=== PATIENT | male | born 1960 | race Caucasian/White ===

== ENCOUNTER 2021-02-15 11:11 | Inpatient (IN) | payer OTHER ==
[2021-02-15 13:57] VITALS: BMI 27.6
[2021-02-15] MEDS ORDERED: ACETAMINOPHEN 325 MG TABLET (FP) PO PRN (15:33)
[2021-02-15] MEDS ORDERED: MAGNESIUM HYDROX 2400MG/30ML ORAL SUSPENSION 30 ML CUP PO PRN (15:33)
[2021-02-15] MEDS ORDERED: NICOTINE POLACRILEX 2 MG GUM BUC PRN (15:33)
[2021-02-15] MEDS ORDERED: MENTHOL/PHENOL 1 EACH UD MM PRN (15:33)
[2021-02-15] MEDS ORDERED: METHOCARBAMOL 500 MG TABLET PO PRN (15:33)
[2021-02-15] MEDS ORDERED: BISMUTH SUBSALICYLATE 262 MG/15 ML BTL PO PRN (15:33)
[2021-02-15] MEDS ORDERED: MAGNESIUM CITRATE 300 ML BOTTLE PO PRN (15:33)
[2021-02-15] MEDS ORDERED: LORazepam 1 MG TABLET PO PRN (15:33)
[2021-02-15] MEDS ORDERED: cloNIDine HCL 0.1 MG TABLET ONE (16:18)
[2021-02-15] MEDS ORDERED: cloNIDine HCL 0.1 MG TABLET PO ONE (16:23)
[2021-02-15] MEDS: ONDANSETRON *ODT* 4 MG TABLET SL PRN (17:34)
[2021-02-15] MEDS: hydrOXYzine PAMOATE 25 MG CAPSULE (FP) PO SCH ×2 (17:35→22:25)
[2021-02-15] MEDS: LORazepam 2 MG TABLET PO SCH ×2 (17:35→22:26)
[2021-02-15] MEDS: IBUPROFEN 400 MG TABLET (FP) PO PRN (17:36)
[2021-02-15] MEDS ORDERED: ATENOLOL 25 MG TABLET (FP) PO SCH (22:00)
[2021-02-15] MEDS: MELATONIN 5 MG TABLETS PO SCH (22:25)
[2021-02-15] MEDS: ATENOLOL 25 MG TABLET (FP) PO SCH (22:25)
[2021-02-15] MEDS: THIAMINE HCL 100 MG TABLET (FP) PO SCH (22:26)
[2021-02-15] MEDS: rOPINIRole HCL 3 MG TABLET PO SCH (22:29)
[2021-02-16] MEDS: LORazepam 2 MG TABLET PO SCH ×4 (05:43→22:19)
[2021-02-16] MEDS: hydrOXYzine PAMOATE 25 MG CAPSULE (FP) PO SCH ×5 (05:44→21:47)
[2021-02-16] MEDS: ACETAMINOPHEN 325 MG TABLET (FP) PO PRN ×2 (06:26→14:28)
[2021-02-16 10:28] LABS: HEMATOCRIT 42.3 % (35.4-49); HEMOGLOBIN 14.5 GM/dL (11.7-16.9); MCH 34.7 pg (25.7-33.7); MCHC 34.2 g/dl (32.0-35.9); MEAN CELL VOLUME 101.5 fl (80-96); MEAN PLT VOLUME 11.1 fl (7.5-11.1); PLATELET COUNT 121 K/MM3 (134-434); RBC 4.17 M/mm3 (4.00-5.60); RDW 13.7 % (11.9-15.9); WHITE BLOOD COUNT 7.2 K/mm3 (4.0-10.0)
[2021-02-16 10:30] LABS: ALBUMIN 3.4 g/dl (3.4-5.0); BLOOD UREA NITROGEN 8.3 mg/dL (7-18); CREATININE 0.8 mg/dL (0.55-1.3)
[2021-02-16 10:31] LABS: BILIRUBIN,TOTAL 1.3 mg/dL (0.2-1)
[2021-02-16] MEDS: NICOTINE 21 MG/24 HOURS TOPICAL PATCH TD SCH (10:35)
[2021-02-16] MEDS: PRENATAL VITAMINS W/ FOLIC ACID TABLET (FP) PO SCH (10:35)
[2021-02-16] MEDS: ATENOLOL 25 MG TABLET (FP) PO SCH ×2 (10:36→21:44)
[2021-02-16] MEDS: IBUPROFEN 400 MG TABLET (FP) PO PRN ×2 (10:37→17:34)
[2021-02-16] MEDS: ONDANSETRON *ODT* 4 MG TABLET SL PRN (10:38)
[2021-02-16 11:20] LABS: HIV INTERPRETATION NEGATIVE (NEGATIVE)
[2021-02-16] MEDS ORDERED: POTASSIUM CHLORIDE TABS 20 MEQ TABLET.ER (FP) PO ONE (13:11)
[2021-02-16] MEDS: MAG HYDROX/AL HYDROX/SIMETH 30 ML UNIT-DOSE CUP PO PRN (14:31)
[2021-02-16] MEDS: MELATONIN 5 MG TABLETS PO SCH (21:45)
[2021-02-16] MEDS: rOPINIRole HCL 3 MG TABLET PO SCH (21:45)
[2021-02-16] MEDS: THIAMINE HCL 100 MG TABLET (FP) PO SCH (21:45)
[2021-02-17] MEDS: IBUPROFEN 400 MG TABLET (FP) PO PRN ×3 (01:44→17:58)
[2021-02-17] MEDS: hydrOXYzine PAMOATE 25 MG CAPSULE (FP) PO SCH ×5 (05:59→22:16)
[2021-02-17] MEDS: LORazepam 1 MG TABLET PO SCH ×4 (06:00→22:16)
[2021-02-17] MEDS: MAG HYDROX/AL HYDROX/SIMETH 30 ML UNIT-DOSE CUP PO PRN (06:01)
[2021-02-17] MEDS: ACETAMINOPHEN 325 MG TABLET (FP) PO PRN (06:01)
[2021-02-17] MEDS: ATENOLOL 25 MG TABLET (FP) PO SCH ×2 (09:08→22:17)
[2021-02-17] MEDS: PRENATAL VITAMINS W/ FOLIC ACID TABLET (FP) PO SCH (10:30)
[2021-02-17] MEDS: SERTRALINE HCL 50 MG TABLET (FP) PO SCH (10:30)
[2021-02-17] MEDS: NICOTINE 21 MG/24 HOURS TOPICAL PATCH TD SCH (10:30)
[2021-02-17] MEDS: THIAMINE HCL 100 MG TABLET (FP) PO SCH (22:16)
[2021-02-17] MEDS: rOPINIRole HCL 3 MG TABLET PO SCH (22:18)
[2021-02-17] MEDS: MELATONIN 5 MG TABLETS PO SCH (22:18)
[2021-02-18] MEDS ORDERED: LORazepam 0.5 MG TABLET PO PRN
[2021-02-18] MEDS: IBUPROFEN 400 MG TABLET (FP) PO PRN (02:59)
[2021-02-18] MEDS: LORazepam 0.5 MG TABLET PO SCH ×2 (06:05→11:13)
[2021-02-18] MEDS: hydrOXYzine PAMOATE 25 MG CAPSULE (FP) PO SCH ×2 (06:05→09:51)
[2021-02-18 09:44] VITALS: BP 140/88; PULSE 76; TEMP 96.9
[2021-02-18] MEDS: ATENOLOL 25 MG TABLET (FP) PO SCH (09:50)
[2021-02-18] MEDS: PRENATAL VITAMINS W/ FOLIC ACID TABLET (FP) PO SCH (09:51)
[2021-02-18] MEDS: NICOTINE 21 MG/24 HOURS TOPICAL PATCH TD SCH (09:51)
[2021-02-18] MEDS: SERTRALINE HCL 50 MG TABLET (FP) PO SCH (09:51)
[2021-02-19] MEDS ORDERED: LORazepam 0.5 MG TABLET PO ONE (05:00)
== END 2021-02-18 10:15 | disposition home or self-care (01) | DRG 775 ==
LOC: YASAS 11:11 → Y3N 15:19
PROVIDERS: ADMIT Allergy & Immunology; ATTEND Allergy & Immunology
PROC: HZ2ZZZZ Detoxification Services for Substance Abuse Treatment (ICD-10-PCS; principal; 2021-02-15)
DX: F10.230 Alcohol dependence with withdrawal, uncomplicated (principal); F12.20 Cannabis dependence, uncomplicated; F17.210 Nicotine dependence, cigarettes, uncomplicated; F19.24 Other psychoactive substance dependence with psychoactive substance-induced mood disorder; F41.9 Anxiety disorder, unspecified; F32.9 Major depressive disorder, single episode, unspecified; E87.6 Hypokalemia; I10 Essential (primary) hypertension; G25.81 Restless legs syndrome; Z87.81 Personal history of (healed) traumatic fracture; Z98.890 Other specified postprocedural states
CPT/HCPCS: 36415; 80053; 84132; 85027; 86780; 87389; 93005; 93010; C9803; J0735; Q0162; U0003; U0005

== ENCOUNTER 2021-04-01 15:00 | Inpatient (IN) | payer OTHER ==
[2021-04-01] MEDS ORDERED: LACTATED RINGERS SOLUTION 1000 ML INFUS.BAG IV ONE (15:13)
[2021-04-01] MEDS ORDERED: ONDANSETRON 4 MG/2 ML VIAL IVPUSH ONE (15:14)
[2021-04-01] MEDS ORDERED: LORazepam 2 MG/ML SDV VIAL IVPUSH ONE (15:15)
[2021-04-01] MEDS ORDERED: LORazepam 2 MG/ML SDV VIAL ONE (15:26)
[2021-04-01] MEDS ORDERED: ONDANSETRON 4 MG/2 ML VIAL ONE (15:26)
[2021-04-01 16:01] LABS: BASO % 1.3 % (0-2.0); HEMATOCRIT 45.4 % (35.4-49); HEMOGLOBIN 15.9 GM/dl (11.7-16.9); MCH 35.6 pg (25.7-33.7); MEAN PLT VOLUME 10.8 fl (7.5-11.1); MONO % 10.4 % (3.8-10.2); NEUT % 69.3 % (42.8-82.8); PLATELET COUNT 146 10^3/uL (134-434); RBC 4.45 M/mm3 (4.00-5.60); WHITE BLOOD COUNT 9.4 K/mm3 (4.0-10.8)
[2021-04-01 16:12] LABS: ALBUMIN 4.5 g/dl (3.4-5.0); BILIRUBIN,TOTAL 2.7 mg/dl (0.2-1); CALCIUM 9.5 mg/dl (8.5-10); CREATININE 1.1 mg/dl (0.55-1.3); TOT PROT 7.1 g/dl (6.4-8.2)
[2021-04-01 16:24] LABS: EPITHELIAL CELLS FEW /hpf
[2021-04-01] MEDS ORDERED: POTASSIUM CHLORIDE TABS 20 MEQ TABLET.ER (FP) PO ONE ×2 (16:28→16:51)
[2021-04-01] MEDS ORDERED: POTASSIUM CHLORIDE 20 MEQ PREMIX IVPB 100 ML IVPB ONE (16:29)
[2021-04-01] MEDS ORDERED: KCL 10 MEQ IVPB 20 MEQ/200 ML INFUS.BAG IVPB ONE (16:52)
[2021-04-01 17:26] LABS: URINE BARBITURATES NEGATIVE (NEGATIVE); URINE BENZODIAZEPINES NEGATIVE (NEGATIVE)
[2021-04-01 17:27] LABS: COCAINE, UR NEGATIVE (NEGATIVE); METHADONE, UR NEGATIVE (NEGATIVE); OPIATES, URI NEGATIVE (NEGATIVE); PHENCYCLIDINE,URINE NEGATIVE (NEGATIVE); URINE AMPHETAMINES NEGATIVE (NEGATIVE)
[2021-04-01] MEDS: KCL 10 MEQ IVPB 10 MEQ/100 ML INFUS.BAG IVPB SCH ×2 (18:00→18:10)
[2021-04-01] MEDS ORDERED: LORazepam 1 MG TABLET PO PRN (20:21)
[2021-04-01] MEDS ORDERED: FOLIC ACID INJECTION - 1 MG, THIAMINE HCL 100 MG, MULTIVIT INJECTION ADULT 10 ML in SOD... IVPB ONE (20:25)
[2021-04-01 20:43] LABS: CALCIUM 8.6 mg/dl (8.5-10); CREATININE 0.9 mg/dl (0.55-1.3); MAGNESIUM 1.5 mg/dL (1.8-2.4)
[2021-04-01] MEDS: rOPINIRole HCL 1 MG TABLET (FP) PO SCH (21:19)
[2021-04-01] MEDS: ATENOLOL 25 MG TABLET (FP) PO SCH (21:19)
[2021-04-01] MEDS: NICOTINE 21 MG/24 HOURS TOPICAL PATCH TD SCH (21:19)
[2021-04-01] MEDS ORDERED: MAGNESIUM SULFATE IN WATER 2 GM/50 ML IVPB IVPB ONE (21:25)
[2021-04-01] MEDS ORDERED: KETOROLAC TROMETHAMINE 30 MG/1 ML VIAL IM ONE (22:18)
[2021-04-01] MEDS ORDERED: ACETAMINOPHEN 325 MG TABLET (FP) PO PRN (22:21)
[2021-04-01] MEDS: LORazepam 1 MG TABLET PO SCH (23:10)
[2021-04-02] MEDS ORDERED: KETOROLAC TROMETHAMINE 15 MG/ML VIAL IVPUSH PRN (05:00)
[2021-04-02] MEDS: LORazepam 1 MG TABLET PO SCH ×4 (05:08→23:00)
[2021-04-02 08:09] LABS: BASO % 1.3 % (0-2.0); EOS % 2.5 % (0-4.5); HEMATOCRIT 38.2 % (35.4-49); HEMOGLOBIN 13.5 GM/dl (11.7-16.9); MCH 35.8 pg (25.7-33.7); MCHC 35.4 g/dl (32.0-35.9); MEAN CELL VOLUME 101.4 fl (80-96); MEAN PLT VOLUME 10.6 fl (7.5-11.1); MONO % 11.3 % (3.8-10.2); NEUT % 61.9 % (42.8-82.8); PLATELET COUNT 102 10^3/uL (134-434); RBC 3.77 M/mm3 (4.00-5.60); RDW 13.6 % (11.9-15.9); WHITE BLOOD COUNT 6.6 K/mm3 (4.0-10.8)
[2021-04-02 08:11] LABS: ALBUMIN 3.2 g/dl (3.4-5.0); BILIRUBIN,TOTAL 2.4 mg/dl (0.2-1); CALCIUM 8.4 mg/dl (8.5-10); CREATININE 0.9 mg/dl (0.55-1.3); TOT PROT 5.5 g/dl (6.4-8.2)
[2021-04-02] MEDS: ATENOLOL 25 MG TABLET (FP) PO SCH ×2 (10:06→21:11)
[2021-04-02] MEDS: POTASSIUM CHLORIDE TABS 20 MEQ TABLET.ER (FP) PO SCH ×2 (10:06→16:09)
[2021-04-02] MEDS: KCL 10 MEQ IVPB 10 MEQ/100 ML INFUS.BAG IVPB SCH ×3 (10:06→13:00)
[2021-04-02] MEDS: SERTRALINE HCL 25 MG TABLET (FP) PO SCH (10:06)
[2021-04-02] MEDS: NICOTINE 21 MG/24 HOURS TOPICAL PATCH TD SCH (10:07)
[2021-04-02] MEDS ORDERED: SODIUM CHLORIDE 500 ML IV STA (14:02)
[2021-04-02] MEDS: SODIUM CHLORIDE 1,000 ML IV SCH (14:18)
[2021-04-02 20:09] LABS: CALCIUM 8.4 mg/dl (8.5-10); CREATININE 0.9 mg/dl (0.55-1.3); MAGNESIUM 1.8 mg/dL (1.8-2.4)
[2021-04-02] MEDS: rOPINIRole HCL 1 MG TABLET (FP) PO SCH (21:11)
[2021-04-03] MEDS: LORazepam 1 MG TABLET PO SCH ×4 (04:12→23:39)
[2021-04-03 08:42] LABS: BASO % 0.7 % (0-2.0); EOS % 2.3 % (0-4.5); HEMATOCRIT 41.9 % (35.4-49); HEMOGLOBIN 14.3 GM/dl (11.7-16.9); LYMPH % 24.1 % (8-40); MCH 34.5 pg (25.7-33.7); MEAN CELL VOLUME 101.3 fl (80-96); MEAN PLT VOLUME 10.1 fl (7.5-11.1); MONO % 13.7 % (3.8-10.2); NEUT % 59.2 % (42.8-82.8); PLATELET COUNT 102 10^3/uL (134-434); RBC 4.14 M/mm3 (4.00-5.60); RDW 13.7 % (11.9-15.9); WHITE BLOOD COUNT 7.1 K/mm3 (4.0-10.8)
[2021-04-03 08:49] LABS: ALBUMIN 3.5 g/dl (3.4-5.0); BILIRUBIN,TOTAL 1.6 mg/dl (0.2-1); CALCIUM 8.8 mg/dl (8.5-10); CREATININE 0.8 mg/dl (0.55-1.3); MAGNESIUM 1.6 mg/dL (1.8-2.4); PHOSPHOROUS 2.6 mg/dl (2.5-4.9); TOT PROT 6.1 g/dl (6.4-8.2)
[2021-04-03] MEDS ORDERED: MAGNESIUM SULF 50% (8.12 MEQ/2 ML-1 GM VIAL) IVPB ONE (09:28)
[2021-04-03] MEDS ORDERED: MAGNESIUM SULFATE IN WATER 2 GM/50 ML IVPB IVPB ONE (09:45)
[2021-04-03] MEDS: POTASSIUM CHLORIDE TABS 20 MEQ TABLET.ER (FP) PO SCH ×2 (10:48→14:50)
[2021-04-03] MEDS: ATENOLOL 25 MG TABLET (FP) PO SCH ×2 (10:48→21:30)
[2021-04-03] MEDS: SERTRALINE HCL 25 MG TABLET (FP) PO SCH (10:48)
[2021-04-03] MEDS: NICOTINE 21 MG/24 HOURS TOPICAL PATCH TD SCH (10:49)
[2021-04-03] MEDS: SODIUM CHLORIDE 1,000 ML IV SCH (14:50)
[2021-04-03 15:57] VITALS: BMI 27.9
[2021-04-03] MEDS: ENOXAPARIN NA (PORCINE) 40 MG/0.4 ML DISP.SYRIN SQ SCH (16:11)
[2021-04-03] MEDS: FOLIC ACID 1 MG TABLET (FP) PO SCH (16:11)
[2021-04-03] MEDS: THIAMINE HCL 100 MG TABLET (FP) PO SCH (16:11)
[2021-04-03] MEDS: rOPINIRole HCL 1 MG TABLET (FP) PO SCH (21:30)
[2021-04-04] MEDS ORDERED: LORazepam 0.5 MG TABLET PO PRN
[2021-04-04] MEDS: LORazepam 0.5 MG TABLET PO SCH ×3 (06:00→16:57)
[2021-04-04 08:14] LABS: HEMATOCRIT 42.2 % (35.4-49); HEMOGLOBIN 14.7 GM/dl (11.7-16.9); MCH 35.7 pg (25.7-33.7); MCHC 34.9 g/dl (32.0-35.9); MEAN CELL VOLUME 102.3 fl (80-96); MEAN PLT VOLUME 9.7 fl (7.5-11.1); PLATELET COUNT 98 10^3/uL (134-434); RBC 4.12 M/mm3 (4.00-5.60); RDW 13.8 % (11.9-15.9)
[2021-04-04 08:20] LABS: ALBUMIN 3.4 g/dl (3.4-5.0); BILIRUBIN,TOTAL 1.2 mg/dl (0.2-1); CALCIUM 8.8 mg/dl (8.5-10); CREATININE 0.8 mg/dl (0.55-1.3); MAGNESIUM 1.8 mg/dL (1.8-2.4); PHOSPHOROUS 3.5 mg/dl (2.5-4.9); TOT PROT 6.1 g/dl (6.4-8.2)
[2021-04-04 09:40] LABS: PLATELET ESTIMATE DECREASED
[2021-04-04] MEDS: THIAMINE HCL 100 MG TABLET (FP) PO SCH (10:39)
[2021-04-04] MEDS: SERTRALINE HCL 25 MG TABLET (FP) PO SCH (10:40)
[2021-04-04] MEDS: FOLIC ACID 1 MG TABLET (FP) PO SCH (10:40)
[2021-04-04] MEDS: ENOXAPARIN NA (PORCINE) 40 MG/0.4 ML DISP.SYRIN SQ SCH (10:43)
[2021-04-04] MEDS: ATENOLOL 25 MG TABLET (FP) PO SCH ×2 (10:43→22:05)
[2021-04-04] MEDS: NICOTINE 21 MG/24 HOURS TOPICAL PATCH TD SCH (10:43)
[2021-04-04] MEDS: ACETAMINOPHEN 325 MG TABLET (FP) PO PRN ×2 (10:49→16:58)
[2021-04-04] MEDS: rOPINIRole HCL 1 MG TABLET (FP) PO SCH (22:05)
[2021-04-04] MEDS: SODIUM CHLORIDE 1,000 ML IV SCH (22:06)
[2021-04-05] MEDS: ACETAMINOPHEN 325 MG TABLET (FP) PO PRN (00:46)
[2021-04-05] MEDS: LORazepam 0.5 MG TABLET PO SCH (00:47)
[2021-04-05] MEDS ORDERED: LORazepam 0.5 MG TABLET PO ONE (05:00)
[2021-04-05 09:40] VITALS: BP 130/79; PULSE 88; TEMP 98.4
[2021-04-05] MEDS: ENOXAPARIN NA (PORCINE) 40 MG/0.4 ML DISP.SYRIN SQ SCH (09:42)
[2021-04-05] MEDS: NICOTINE 21 MG/24 HOURS TOPICAL PATCH TD SCH (09:42)
[2021-04-05] MEDS: FOLIC ACID 1 MG TABLET (FP) PO SCH (09:42)
[2021-04-05] MEDS: THIAMINE HCL 100 MG TABLET (FP) PO SCH (09:42)
[2021-04-05] MEDS: ATENOLOL 25 MG TABLET (FP) PO SCH (09:42)
[2021-04-05] MEDS: SERTRALINE HCL 25 MG TABLET (FP) PO SCH (09:42)
== END 2021-04-05 09:55 | disposition home or self-care (01) | DRG 897 ==
LOC: FER 15:00 → FM/S 16:51
PROVIDERS: ADMIT Hospitalist; ATTEND Nurse Practitioner Acute Care
PROC: HZ2ZZZZ Detoxification Services for Substance Abuse Treatment (ICD-10-PCS; principal; 2021-04-01)
DX: F10.239 Alcohol dependence with withdrawal, unspecified (principal); E87.2 Acidosis; M43.16 Spondylolisthesis, lumbar region; F10.288 Alcohol dependence with other alcohol-induced disorder; M54.9 Dorsalgia, unspecified; I10 Essential (primary) hypertension; F41.8 Other specified anxiety disorders; G25.81 Restless legs syndrome; E87.5 Hyperkalemia; M54.5 Low back pain; E87.6 Hypokalemia; E83.42 Hypomagnesemia; M43.5X6 Other recurrent vertebral dislocation, lumbar region; K76.0 Fatty (change of) liver, not elsewhere classified
CPT/HCPCS: 36415; 72100-TC-FY; 76705-TC; 80048; 80053; 80307; 81003; 81015; 82010; 82550; 82553; 83690; 83735; 84100; 85025; 93005; 97116-GP; 97162-GP; 99285-25; C9803; U0003; U0005

== ENCOUNTER 2021-11-05 11:00 | Inpatient (IN) | payer OTHER ==
[2021-11-05 11:09] VITALS: BMI 26.4
[2021-11-05] MEDS ORDERED: diazePAM CARPU-JECT 10 MG/2 ML DISP.SYRIN IVPUSH ONE (11:32)
[2021-11-05] MEDS ORDERED: SODIUM CHLORIDE 0.9% 500 ML INFUS.BAG IV ONE (11:32)
[2021-11-05] MEDS ORDERED: ONDANSETRON 4 MG/2 ML VIAL IVPUSH ONE (11:32)
[2021-11-05] MEDS ORDERED: ONDANSETRON 4 MG/2 ML VIAL ONE (11:43)
[2021-11-05] MEDS ORDERED: diazePAM CARPU-JECT 10 MG/2 ML DISP.SYRIN ONE (11:43)
[2021-11-05 12:05] LABS: ALBUMIN 4.4 g/dl (3.4-5.0); BILIRUBIN,TOTAL 1.5 mg/dl (0.2-1); CALCIUM 9.6 mg/dl (8.5-10); CREATININE 0.7 mg/dl (0.55-1.3); MAGNESIUM 1.6 mg/dL (1.8-2.4)
[2021-11-05 13:15] LABS: BASO % 0.8 % (0-2.0); EOS % 1.5 % (0-4.5); HEMATOCRIT 43.9 % (35.4-49); LYMPH % 23.7 % (8-40); MCH 34.3 pg (25.7-33.7); MCHC 34.1 g/dl (32.0-35.9); MEAN CELL VOLUME 100.6 fl (80-96); MONO % 12.6 % (3.8-10.2); NEUT % 61.4 % (42.8-82.8); PLATELET COUNT 122 10^3/uL (134-434); RBC 4.36 M/mm3 (4.00-5.60); RDW 14.2 % (11.9-15.9); WHITE BLOOD COUNT 4.7 K/mm3 (4.0-10.0)
[2021-11-05] MEDS ORDERED: chlordiazePOXIDE HCL 25 MG CAPSULE PO ONE (13:21)
[2021-11-05] MEDS ORDERED: MAGNESIUM SULF 50% (8.12 MEQ/2 ML-1 GM VIAL) IVPB ONE (13:27)
[2021-11-05] MEDS ORDERED: POTASSIUM CHLORIDE TABS 20 MEQ TABLET.ER (FP) PO ONE ×2 (13:28→13:32)
[2021-11-05] MEDS ORDERED: chlordiazePOXIDE HCL 25 MG CAPSULE ONE (13:32)
[2021-11-05] MEDS ORDERED: MAGNESIUM 1GM/D5W - 1 GM/100 ML IVPB IVPB ONE (13:32)
[2021-11-05] MEDS ORDERED: THIAMINE HCL 200 MG/2 ML VIAL IVPB ONE (14:51)
[2021-11-05] MEDS ORDERED: THIAMINE HCL 200 MG/2 ML VIAL ONE (15:04)
[2021-11-05 15:46] LABS: VENOUS BASE EXCESS 2.6 mmol/L (-2-2); VENOUS O2 SATURATION 81.2 % (70-80); VENOUS PCO2 42.1 mmHg (38-52); VENOUS PH 7.429 (7.310-7.410)
[2021-11-05 15:55] LABS: BG HCT QNS % (35.4-49)
[2021-11-05] MEDS: DEXTROSE 5%-NORMAL SALINE 1,000 ML IV SCH (16:00)
[2021-11-05] MEDS ORDERED: LORazepam 1 MG TABLET PO PRN (16:43)
[2021-11-05 17:07] LABS: PHOSPHOROUS 3.6 mg/dl (2.5-4.9)
[2021-11-05] MEDS ORDERED: LORazepam 0.5 MG TABLET ONE (17:36)
[2021-11-05] MEDS: LORazepam 2 MG TABLET PO SCH ×2 (17:38→23:06)
[2021-11-05] MEDS ORDERED: MELATONIN 5 MG TABLETS PO ONE (22:45)
[2021-11-05] MEDS: NICOTINE 14 MG/24 HOURS TOPICAL PATCH TD SCH (22:59)
[2021-11-06] MEDS: LORazepam 1 MG TABLET PO SCH ×5 (00:12→23:10)
[2021-11-06 08:20] LABS: ALBUMIN 3.5 g/dl (3.4-5.0); BILIRUBIN,TOTAL 1.3 mg/dl (0.2-1); CALCIUM 8.9 mg/dl (8.5-10); CREATININE 0.7 mg/dl (0.55-1.3); TOT PROT 5.6 g/dl (6.4-8.2)
[2021-11-06] MEDS ORDERED: MAGNESIUM SULF 50% (8.12 MEQ/2 ML-1 GM VIAL) IVPB ONE (08:35)
[2021-11-06] MEDS ORDERED: MAGNESIUM 1GM/D5W - 1 GM/100 ML IVPB IVPB ONE (09:00)
[2021-11-06] MEDS: POTASSIUM CHLORIDE TABS 20 MEQ TABLET.ER (FP) PO SCH ×2 (09:36→15:05)
[2021-11-06] MEDS: THIAMINE HCL 100 MG TABLET (FP) PO SCH (09:37)
[2021-11-06] MEDS: NICOTINE 14 MG/24 HOURS TOPICAL PATCH TD SCH (09:37)
[2021-11-06] MEDS: FOLIC ACID 1 MG TABLET (FP) PO SCH (09:37)
[2021-11-06 11:01] LABS: EOS % 2.3 % (0-4.5); HEMATOCRIT 36.8 % (35.4-49); HEMOGLOBIN 12.6 GM/dL (11.7-16.9); LYMPH % 26.7 % (8-40); MCH 34.6 pg (25.7-33.7); MCHC 34.3 g/dl (32.0-35.9); MEAN PLT VOLUME 9.9 fl (7.5-11.1); MONO % 12.7 % (3.8-10.2); NEUT % 57.3 % (42.8-82.8); PLATELET COUNT 96 10^3/uL (134-434); RBC 3.64 M/mm3 (4.00-5.60); RDW 14.3 % (11.9-15.9); WHITE BLOOD COUNT 4.5 K/mm3 (4.0-10.0)
[2021-11-06] MEDS: LISINOPRIL 10 MG TABLET PO SCH (15:04)
[2021-11-06] MEDS: ENOXAPARIN NA (PORCINE) 40 MG/0.4 ML DISP.SYRIN SQ SCH (15:04)
[2021-11-06] MEDS: DEXTROSE 5%-NORMAL SALINE 1,000 ML IV SCH (15:05)
[2021-11-06] MEDS: ACETAMINOPHEN 325 MG TABLET (FP) PO PRN ×2 (16:44→23:15)
[2021-11-07] MEDS: LORazepam 1 MG TABLET PO SCH ×4 (05:10→22:52)
[2021-11-07] MEDS: FOLIC ACID 1 MG TABLET (FP) PO SCH (10:03)
[2021-11-07] MEDS: NICOTINE 14 MG/24 HOURS TOPICAL PATCH TD SCH (10:03)
[2021-11-07] MEDS: LISINOPRIL 10 MG TABLET PO SCH (10:03)
[2021-11-07] MEDS: THIAMINE HCL 100 MG TABLET (FP) PO SCH (10:03)
[2021-11-07] MEDS: ENOXAPARIN NA (PORCINE) 40 MG/0.4 ML DISP.SYRIN SQ SCH (10:04)
[2021-11-07] MEDS ORDERED: LISINOPRIL 10 MG TABLET PO ONE (12:30)
[2021-11-07 14:22] LABS: ALBUMIN 3.9 g/dl (3.4-5.0); BILIRUBIN,TOTAL 0.9 mg/dl (0.2-1); CALCIUM 9.6 mg/dl (8.5-10); CREATININE 0.7 mg/dl (0.55-1.3); MAGNESIUM 1.6 mg/dL (1.8-2.4); TOT PROT 6.4 g/dl (6.4-8.2)
[2021-11-07] MEDS ORDERED: MAGNESIUM SULF 50% (8.12 MEQ/2 ML-1 GM VIAL) IVPB ONE (14:39)
[2021-11-07] MEDS ORDERED: MAGNESIUM SULFATE IN WATER 2 GM/50 ML IVPB IVPB ONE (15:15)
[2021-11-07 16:14] LABS: BASO % 0.9 % (0-2.0); EOS % 2.4 % (0-4.5); HEMATOCRIT 42.6 % (35.4-49); HEMOGLOBIN 13.8 GM/dL (11.7-16.9); LYMPH % 25.5 % (8-40); MCH 33.1 pg (25.7-33.7); MCHC 32.3 g/dl (32.0-35.9); MEAN CELL VOLUME 102.2 fl (80-96); MEAN PLT VOLUME 10.9 fl (7.5-11.1); MONO % 11.2 % (3.8-10.2); PLATELET COUNT 110 10^3/uL (134-434); RBC 4.17 M/mm3 (4.00-5.60); RDW 14.1 % (11.9-15.9); WHITE BLOOD COUNT 4.8 K/mm3 (4.0-10.0)
[2021-11-07] MEDS ORDERED: ONDANSETRON 4 MG/2 ML VIAL IVPUSH ONE (23:40)
[2021-11-07] MEDS: ACETAMINOPHEN 325 MG TABLET (FP) PO PRN (23:47)
[2021-11-08] MEDS ORDERED: LORazepam 0.5 MG TABLET PO PRN
[2021-11-08] MEDS: LORazepam 0.5 MG TABLET PO SCH ×4 (05:33→22:17)
[2021-11-08] MEDS: NICOTINE 14 MG/24 HOURS TOPICAL PATCH TD SCH (10:22)
[2021-11-08] MEDS: ENOXAPARIN NA (PORCINE) 40 MG/0.4 ML DISP.SYRIN SQ SCH (10:22)
[2021-11-08] MEDS: LISINOPRIL 20 MG TABLET PO SCH (10:23)
[2021-11-08] MEDS: THIAMINE HCL 100 MG TABLET (FP) PO SCH (10:23)
[2021-11-08] MEDS: FOLIC ACID 1 MG TABLET (FP) PO SCH (10:23)
[2021-11-08] MEDS: ACETAMINOPHEN 325 MG TABLET (FP) PO PRN ×2 (17:04→22:21)
[2021-11-09 02:02] VITALS: TEMP 97.6
[2021-11-09] MEDS ORDERED: LORazepam 0.5 MG TABLET PO ONE (05:00)
[2021-11-09 06:16] VITALS: BP 168/99; PULSE 76
[2021-11-09] MEDS ORDERED: MAGNESIUM SULF 50% (8.12 MEQ/2 ML-1 GM VIAL) IVPB ONE (08:31)
[2021-11-09] MEDS ORDERED: MAGNESIUM OXIDE 400 MG TABLET (FP) PO ONE (09:28)
[2021-11-09] MEDS: FOLIC ACID 1 MG TABLET (FP) PO SCH (09:32)
[2021-11-09] MEDS: THIAMINE HCL 100 MG TABLET (FP) PO SCH (09:32)
[2021-11-09] MEDS: LISINOPRIL 20 MG TABLET PO SCH (09:32)
[2021-11-09] MEDS: ENOXAPARIN NA (PORCINE) 40 MG/0.4 ML DISP.SYRIN SQ SCH (09:33)
[2021-11-09] MEDS: NICOTINE 14 MG/24 HOURS TOPICAL PATCH TD SCH (09:33)
[2021-11-09] MEDS ORDERED: DULoxetine HCL 20 MG CAPSULE.DR PO SCH (10:00)
== END 2021-11-09 10:15 | disposition home or self-care (01) | DRG 897 ==
LOC: FER 11:00 → FM/S 15:08
PROVIDERS: ADMIT Internal Medicine; ATTEND Nurse Practitioner Family
PROC: HZ2ZZZZ Detoxification Services for Substance Abuse Treatment (ICD-10-PCS; principal; 2021-11-05)
DX: F10.230 Alcohol dependence with withdrawal, uncomplicated (principal); E87.2 Acidosis; R11.2 Nausea with vomiting, unspecified; Z91.14 Patient's other noncompliance with medication regimen; H93.19 Tinnitus, unspecified ear; R00.0 Tachycardia, unspecified; I10 Essential (primary) hypertension; F41.8 Other specified anxiety disorders; E87.6 Hypokalemia; G47.30 Sleep apnea, unspecified; F12.20 Cannabis dependence, uncomplicated; F17.200 Nicotine dependence, unspecified, uncomplicated; E83.42 Hypomagnesemia
CPT/HCPCS: 36415; 80053; 81003; 82010; 82803; 83605; 83690; 83735; 83930; 84100; 85025; 86705; 86709; 86803; 87086; 87340; 87517; 93005; 97116-GP; 97161-GP; 99285-25; C9803; U0003; U0005

== ENCOUNTER 2022-10-08 15:09 | Inpatient (IN) | payer OTHER ==
[2022-10-08 15:43] VITALS: BMI 23.8
[2022-10-08] MEDS ORDERED: NICOTINE POLACRILEX 2 MG GUM BUC PRN (17:11)
[2022-10-08] MEDS ORDERED: DICYCLOMINE HCL 10 MG CAPSULE PO PRN (17:11)
[2022-10-08] MEDS ORDERED: P-EPHED 60MG/TRIPROLIDI 2.5MG TABLET PO PRN (17:11)
[2022-10-08] MEDS ORDERED: POLYETHYLENE GLYCOL (HEALTHYLAX) 3350 17 GM PACKET PO PRN (17:11)
[2022-10-08] MEDS ORDERED: MAGNESIUM HYDROX 2400MG/30ML ORAL SUSPENSION 30 ML CUP PO PRN (17:11)
[2022-10-08] MEDS ORDERED: BISMUTH SUBSALICYLATE 524 MG/30 ML PO PRN (17:11)
[2022-10-08] MEDS ORDERED: guaiFENesin 200 MG/10 ML 10 ML UNIT-DOSE CUPS PO PRN (17:11)
[2022-10-08] MEDS ORDERED: ACETAMINOPHEN 325 MG TABLET (FP) PO PRN ×2 (17:11)
[2022-10-08] MEDS ORDERED: MAG HYDROX/AL HYDROX/SIMETH 30 ML UNIT-DOSE CUP PO PRN (17:11)
[2022-10-08] MEDS ORDERED: LOPERAMIDE HCL 2 MG CAPSULE PO PRN (17:11)
[2022-10-08] MEDS ORDERED: TRIMETHOBENZAMIDE HCL 200MG/2ML INJ IM ONE (17:13)
[2022-10-08] MEDS ORDERED: chlordiazePOXIDE HCL 25 MG CAPSULE PO PRN (17:13)
[2022-10-08] MEDS ORDERED: LORazepam 2 MG/ML SDV VIAL IM ONE (17:19)
[2022-10-08] MEDS ORDERED: chlordiazePOXIDE HCL 25 MG CAPSULE ONE (18:21)
[2022-10-08] MEDS: chlordiazePOXIDE HCL 25 MG CAPSULE PO SCH ×2 (18:26→22:33)
[2022-10-08] MEDS: THIAMINE HCL 100 MG TABLET (FP) PO SCH (22:33)
[2022-10-08] MEDS: ONDANSETRON *ODT* 4 MG TABLET SL PRN (22:34)
[2022-10-09] MEDS: chlordiazePOXIDE HCL 25 MG CAPSULE PO SCH ×4 (05:34→22:16)
[2022-10-09] MEDS: PRENATAL VITAMINS W/ FOLIC ACID TABLET (FP) PO SCH (10:14)
[2022-10-09] MEDS: NICOTINE 14 MG/24 HOURS TOPICAL PATCH TD SCH (10:15)
[2022-10-09] MEDS: ONDANSETRON *ODT* 4 MG TABLET SL PRN ×2 (10:15→17:38)
[2022-10-09 12:53] LABS: HEMATOCRIT 39.5 % (35.4-49); HEMOGLOBIN 12.9 GM/dL (11.7-16.9); MCH 34.3 pg (25.7-33.7); MCHC 32.8 g/dl (32.0-35.9); MEAN CELL VOLUME 104.6 fl (80-96); MEAN PLT VOLUME 10.2 fl (7.5-11.1); PLATELET COUNT 115 10^3/uL (134-434); RBC 3.78 M/mm3 (4.00-5.60); RDW 13.8 % (11.9-15.9); WHITE BLOOD COUNT 7.6 K/mm3 (4.0-10.0)
[2022-10-09] MEDS ORDERED: TRIMETHOBENZAMIDE HCL 200MG/2ML INJ IM ONE (12:55)
[2022-10-09 13:36] LABS: CHLORIDE 92 mmol/L (98-107); SODIUM 137 mmol/L (136-145)
[2022-10-09 13:51] LABS: ALBUMIN 2.8 g/dl (3.4-5.0)
[2022-10-09 13:53] LABS: SGPT/ALT 72 U/L (13-61); TOT PROT 5.6 g/dl (6.4-8.2)
[2022-10-09 13:54] LABS: ALK PHOS 137 U/L (45-117); CREATININE 0.7 mg/dL (0.55-1.3); SGOT/AST 115 U/L (15-37)
[2022-10-09 13:55] LABS: BILIRUBIN,TOTAL 1.6 mg/dL (0.2-1)
[2022-10-09 13:58] LABS: BLOOD UREA NITROGEN 6.6 mg/dL (7-18); CALCIUM 8.8 mg/dL (8.5-10.1); CO2 37 mmol/L (21-32); GLUCOSE,RANDOM 120 mg/dL (74-106)
[2022-10-09 14:04] LABS: ANION GAP 8 MMOL/L (8-16)
[2022-10-09] MEDS ORDERED: POTASSIUM CHLORIDE ORAL LIQUID 20 MEQ/15 ML PO ONE (14:13)
[2022-10-09] MEDS: FOLIC ACID 1 MG TABLET (FP) PO SCH (20:19)
[2022-10-09] MEDS: LISINOPRIL 5 MG TABLET PO SCH (20:19)
[2022-10-09] MEDS: MAGNESIUM OXIDE 400 MG TABLET (FP) PO SCH (21:45)
[2022-10-09] MEDS: THIAMINE HCL 100 MG TABLET (FP) PO SCH (22:16)
[2022-10-09] MEDS: rOPINIRole HCL 3 MG TABLET PO SCH (22:59)
[2022-10-09] MEDS: PSYLLIUM 5.85 GM PACKET PO SCH (22:59)
[2022-10-10] MEDS: chlordiazePOXIDE HCL 25 MG CAPSULE PO SCH ×4 (05:52→22:19)
[2022-10-10] MEDS: MAGNESIUM OXIDE 400 MG TABLET (FP) PO SCH (10:23)
[2022-10-10] MEDS: LISINOPRIL 5 MG TABLET PO SCH (10:23)
[2022-10-10] MEDS: FOLIC ACID 1 MG TABLET (FP) PO SCH (10:23)
[2022-10-10] MEDS: NICOTINE 14 MG/24 HOURS TOPICAL PATCH TD SCH (10:23)
[2022-10-10] MEDS: PRENATAL VITAMINS W/ FOLIC ACID TABLET (FP) PO SCH (10:23)
[2022-10-10] MEDS: PSYLLIUM 5.85 GM PACKET PO SCH (10:24)
[2022-10-10] MEDS: ONDANSETRON *ODT* 4 MG TABLET SL PRN ×2 (10:27→17:26)
[2022-10-10] MEDS ORDERED: POTASSIUM CHLORIDE ORAL LIQUID 20 MEQ/15 ML PO ONE ×2 (12:45→15:00)
[2022-10-10] MEDS: IBUPROFEN 600 MG TABLET (FP) PO PRN (17:26)
[2022-10-10] MEDS: THIAMINE HCL 100 MG TABLET (FP) PO SCH (22:18)
[2022-10-10] MEDS: rOPINIRole HCL 3 MG TABLET PO SCH (22:19)
[2022-10-11] MEDS ORDERED: chlordiazePOXIDE HCL 10 MG CAPSULE PO PRN
[2022-10-11] MEDS: BENZOCAINE/MENTHOL (CHLORASEPTIC ) LOZENGE MM PRN (00:11)
[2022-10-11] MEDS: chlordiazePOXIDE HCL 10 MG CAPSULE PO SCH ×4 (05:28→22:23)
[2022-10-11] MEDS: ONDANSETRON *ODT* 4 MG TABLET SL PRN ×2 (05:30→17:31)
[2022-10-11] MEDS: PSYLLIUM 5.85 GM PACKET PO SCH (10:17)
[2022-10-11] MEDS: FOLIC ACID 1 MG TABLET (FP) PO SCH (10:19)
[2022-10-11] MEDS: NICOTINE 14 MG/24 HOURS TOPICAL PATCH TD SCH (10:19)
[2022-10-11] MEDS: LISINOPRIL 5 MG TABLET PO SCH (10:19)
[2022-10-11] MEDS: MAGNESIUM OXIDE 400 MG TABLET (FP) PO SCH (10:19)
[2022-10-11] MEDS: IBUPROFEN 400 MG TABLET (FP) PO PRN ×2 (10:21→22:24)
[2022-10-11] MEDS: PRENATAL VITAMINS W/ FOLIC ACID TABLET (FP) PO SCH (10:21)
[2022-10-11] MEDS: DULoxetine HCL 20 MG CAPSULE.DR PO SCH (10:48)
[2022-10-11] MEDS: IBUPROFEN 600 MG TABLET (FP) PO PRN (17:32)
[2022-10-11] MEDS: THIAMINE HCL 100 MG TABLET (FP) PO SCH (22:22)
[2022-10-11] MEDS: rOPINIRole HCL 3 MG TABLET PO SCH (22:22)
[2022-10-12] MEDS: chlordiazePOXIDE HCL 10 MG CAPSULE PO SCH ×2 (05:19→17:21)
[2022-10-12] MEDS: IBUPROFEN 600 MG TABLET (FP) PO PRN ×2 (08:53→17:22)
[2022-10-12] MEDS: PRENATAL VITAMINS W/ FOLIC ACID TABLET (FP) PO SCH (10:15)
[2022-10-12] MEDS: MAGNESIUM OXIDE 400 MG TABLET (FP) PO SCH (10:15)
[2022-10-12] MEDS: DULoxetine HCL 20 MG CAPSULE.DR PO SCH (10:15)
[2022-10-12] MEDS: FOLIC ACID 1 MG TABLET (FP) PO SCH (10:15)
[2022-10-12] MEDS: LISINOPRIL 5 MG TABLET PO SCH (10:15)
[2022-10-12] MEDS: PSYLLIUM 5.85 GM PACKET PO SCH (10:16)
[2022-10-12] MEDS: NICOTINE 14 MG/24 HOURS TOPICAL PATCH TD SCH (10:16)
[2022-10-12] MEDS: BENZOCAINE/MENTHOL (CHLORASEPTIC ) LOZENGE MM PRN ×2 (10:19→22:43)
[2022-10-12] MEDS: rOPINIRole HCL 3 MG TABLET PO SCH (22:11)
[2022-10-12] MEDS: THIAMINE HCL 100 MG TABLET (FP) PO SCH (22:11)
[2022-10-12] MEDS: IBUPROFEN 400 MG TABLET (FP) PO PRN (22:13)
[2022-10-13] MEDS ORDERED: chlordiazePOXIDE HCL 10 MG CAPSULE PO ONE (05:00)
[2022-10-13 09:18] VITALS: BP 118/74; PULSE 98; RESP 18; TEMP 97.7
[2022-10-13] MEDS: PSYLLIUM 5.85 GM PACKET PO SCH (14:53)
[2022-10-13] MEDS: MAGNESIUM OXIDE 400 MG TABLET (FP) PO SCH (14:54)
[2022-10-13] MEDS: DULoxetine HCL 20 MG CAPSULE.DR PO SCH (14:54)
[2022-10-13] MEDS: NICOTINE 14 MG/24 HOURS TOPICAL PATCH TD SCH (14:54)
[2022-10-13] MEDS: LISINOPRIL 5 MG TABLET PO SCH (14:54)
[2022-10-13] MEDS: PRENATAL VITAMINS W/ FOLIC ACID TABLET (FP) PO SCH (14:54)
[2022-10-13] MEDS: FOLIC ACID 1 MG TABLET (FP) PO SCH (14:54)
== END 2022-10-13 10:02 | disposition home or self-care (01) | DRG 897 ==
LOC: YASAS 15:09 → Y3N 18:00
PROVIDERS: ADMIT Allergy & Immunology; ATTEND Surgery
PROC: HZ2ZZZZ Detoxification Services for Substance Abuse Treatment (ICD-10-PCS; principal; 2022-10-08)
DX: F10.230 Alcohol dependence with withdrawal, uncomplicated (principal); F12.20 Cannabis dependence, uncomplicated; F17.210 Nicotine dependence, cigarettes, uncomplicated; F19.24 Other psychoactive substance dependence with psychoactive substance-induced mood disorder; F41.9 Anxiety disorder, unspecified; F32.A Depression, unspecified; E87.6 Hypokalemia; I10 Essential (primary) hypertension; G47.00 Insomnia, unspecified; G25.81 Restless legs syndrome; G47.30 Sleep apnea, unspecified; M54.50 Low back pain, unspecified; Z91.199 Patient's noncompliance with other medical treatment and regimen due to unspecified reason
CPT/HCPCS: 36415; 80053; 84132; 85027; 86780; C9803-CS; Q0162; U0003; U0005

== ENCOUNTER 2022-12-09 09:04 | Inpatient (IN) | payer OTHER ==
[2022-12-09] MEDS ORDERED: SODIUM CHLORIDE 1,000 ML IV ONE (09:18)
[2022-12-09] MEDS ORDERED: ONDANSETRON 4 MG/2 ML VIAL IVPUSH ONE ×2 (09:18→13:37)
[2022-12-09] MEDS ORDERED: chlordiazePOXIDE HCL 25 MG CAPSULE PO ONE (09:20)
[2022-12-09] MEDS ORDERED: FAMOTIDINE 20 MG/50 ML IVPB 20 MG/50 ML MG IVPB ONE ×2 (09:20→10:01)
[2022-12-09] MEDS ORDERED: diazePAM CARPU-JECT 10 MG/2 ML DISP.SYRIN IVPUSH ONE ×3 (09:20→11:28)
[2022-12-09] MEDS ORDERED: diazePAM CARPU-JECT 10 MG/2 ML DISP.SYRIN ONE ×2 (10:01→11:32)
[2022-12-09] MEDS ORDERED: chlordiazePOXIDE HCL 25 MG CAPSULE ONE (10:01)
[2022-12-09] MEDS ORDERED: ONDANSETRON 4 MG/2 ML VIAL ONE ×2 (10:01→13:33)
[2022-12-09 10:10] LABS: HEMATOCRIT 44.8 % (35.4-49); HEMOGLOBIN 14.7 G/dL (11.7-16.9); MCH 34.6 pg (25.7-33.7); MCHC 32.7 g/dl (32.0-35.9); MEAN CELL VOLUME 105.9 fl (80-96); MEAN PLT VOLUME 9.4 fl (7.5-11.1); PLATELET COUNT 128.7 10^3/uL (134-434); RBC 4.23 10^6/uL (4.00-5.60); RDW 16.1 % (11.9-15.9); WHITE BLOOD COUNT 9.9 10^3/uL (4.0-10.8)
[2022-12-09 10:22] LABS: ALBUMIN 3.2 g/dl (3.4-5.0); CALCIUM 8.9 mg/dl (8.5-10); CREATININE 0.8 mg/dl (0.55-1.3); MAGNESIUM 1.5 mg/dL (1.8-2.4); TOT PROT 6.5 g/dl (6.4-8.2)
[2022-12-09] MEDS ORDERED: POTASSIUM CHLORIDE TABS 20 MEQ TABLET.ER (FP) PO ONE ×2 (11:10→11:32)
[2022-12-09] MEDS ORDERED: MAGNESIUM 1GM/D5W - 1 GM/100 ML IVPB IVPB ONE (11:32)
[2022-12-09 12:03] LABS: ANISOCYTOSIS 1+; MACROCYTOSIS 1+
[2022-12-09 12:25] LABS: LACTIC ACID 8.4 mmol/L (0.4-2.0)
[2022-12-09] MEDS ORDERED: ONDANSETRON 4 MG/2 ML VIAL IVPUSH PRN (15:01)
[2022-12-09 16:49] LABS: LACTIC ACID 3.5 mmol/L (0.4-2.0)
[2022-12-09] MEDS: SODIUM CHLORIDE 1,000 ML IV SCH (18:00)
[2022-12-09 18:58] VITALS: BMI 23.3
[2022-12-09] MEDS: amLODIPine BESYLATE 5 MG TABLET (FP) PO SCH (19:55)
[2022-12-09] MEDS: LORazepam 2 MG/ML SDV VIAL IVPB PRN ×2 (19:55→23:32)
[2022-12-09 21:16] LABS: COCAINE, UR NEGATIVE (NEGATIVE); METHADONE, UR NEGATIVE (NEGATIVE); OPIATES, URI NEGATIVE (NEGATIVE); PHENCYCLIDINE,URINE NEGATIVE (NEGATIVE); URINE AMPHETAMINES NEGATIVE (NEGATIVE); URINE BARBITURATES NEGATIVE (NEGATIVE); URINE BENZODIAZEPINES POSITIVE (NEGATIVE)
[2022-12-09 21:23] LABS: LACTIC ACID 2.2 mmol/L (0.4-2.0)
[2022-12-09] MEDS: rOPINIRole HCL 3 MG TABLET PO SCH (21:45)
[2022-12-10] MEDS ORDERED: HALOPERIDOL LACTATE 5 MG/ML IM ONE (01:10)
[2022-12-10] MEDS ORDERED: LORazepam 2 MG/ML SDV VIAL IVPB ONE (01:52)
[2022-12-10] MEDS: NICOTINE 14 MG/24 HOURS TOPICAL PATCH TD SCH ×2 (02:15→09:30)
[2022-12-10] MEDS: LORazepam 2 MG/ML SDV VIAL IVPB PRN (06:51)
[2022-12-10] MEDS: chlordiazePOXIDE HCL 25 MG CAPSULE PO SCH ×2 (08:17→11:54)
[2022-12-10 09:24] LABS: BILIRUBIN,TOTAL 2.6 mg/dl (0.2-1); CALCIUM 8.3 mg/dl (8.5-10); CREATININE 0.6 mg/dl (0.55-1.3); TOT PROT 6.2 g/dl (6.4-8.2)
[2022-12-10] MEDS: ENOXAPARIN NA (PORCINE) 40 MG/0.4 ML DISP.SYRIN SQ SCH (09:30)
[2022-12-10] MEDS: amLODIPine BESYLATE 5 MG TABLET (FP) PO SCH (09:30)
[2022-12-10 10:32] LABS: BASO % 0.4 % (0-2.0); EOS % 0.6 % (0-4.5); HEMOGLOBIN 13.1 GM/dL (11.7-16.9); LYMPH % 18.3 % (8-40); MCH 35.2 pg (25.7-33.7); MCHC 33.6 g/dl (32.0-35.9); MEAN CELL VOLUME 104.6 fl (80-96); MEAN PLT VOLUME 10.2 fl (7.5-11.1); MONO % 9.4 % (3.8-10.2); NEUT % 71.3 % (42.8-82.8); PLATELET COUNT 90 10^3/uL (134-434); RBC 3.73 M/mm3 (4.00-5.60); RDW 17.3 % (11.9-15.9); WHITE BLOOD COUNT 8.2 K/mm3 (4.0-10.0)
[2022-12-10] MEDS: TRIMETHOBENZAMIDE HCL 200MG/2ML INJ IM PRN (15:48)
[2022-12-10] MEDS: LORazepam 2 MG/ML SDV VIAL IVPUSH PRN (18:32)
[2022-12-10] MEDS ORDERED: ACETAMINOPHEN 1000 MG/100 ML BAG IVPB ONE (19:39)
[2022-12-10] MEDS: rOPINIRole HCL 3 MG TABLET PO SCH (23:00)
[2022-12-11] MEDS: TRIMETHOBENZAMIDE HCL 200MG/2ML INJ IM PRN ×2 (01:21→18:21)
[2022-12-11] MEDS: LORazepam 2 MG/ML SDV VIAL IVPUSH PRN ×4 (01:25→19:52)
[2022-12-11] MEDS: SODIUM CHLORIDE 1,000 ML IV SCH ×2 (01:28→18:24)
[2022-12-11] MEDS ORDERED: chlordiazePOXIDE HCL 25 MG CAPSULE PO SCH (05:00)
[2022-12-11] MEDS ORDERED: IBUPROFEN 600 MG TABLET (FP) PO PRN (07:19)
[2022-12-11 08:38] LABS: ALBUMIN 2.9 g/dl (3.4-5.0); BILIRUBIN,TOTAL 2.3 mg/dl (0.2-1); CALCIUM 8.2 mg/dl (8.5-10); CREATININE 0.6 mg/dl (0.55-1.3); MAGNESIUM 1.5 mg/dL (1.8-2.4); PHOSPHOROUS 1.8 mg/dl (2.5-4.9)
[2022-12-11] MEDS ORDERED: POTASSIUM CHLORIDE TABS 20 MEQ TABLET.ER (FP) PO ONE (09:18)
[2022-12-11] MEDS ORDERED: MAGNESIUM SULF 50% (8.12 MEQ/2 ML-1 GM VIAL) IVPB ONE (09:19)
[2022-12-11] MEDS ORDERED: MAGNESIUM SULFATE IN WATER 2 GM/50 ML IVPB IVPB ONE (09:30)
[2022-12-11] MEDS: ENOXAPARIN NA (PORCINE) 40 MG/0.4 ML DISP.SYRIN SQ SCH (09:32)
[2022-12-11] MEDS: NICOTINE 14 MG/24 HOURS TOPICAL PATCH TD SCH (09:34)
[2022-12-11] MEDS: amLODIPine BESYLATE 10 MG TABLET (FP) PO SCH (09:34)
[2022-12-11] MEDS ORDERED: POTASSIUM PHOSPHATE 15 MM in SODIUM CHLORIDE 250 ML IVPB ONE (11:00)
[2022-12-11 11:33] LABS: BASO % 0.4 % (0-2.0); EOS % 0.8 % (0-4.5); HEMATOCRIT 38.2 % (35.4-49); HEMOGLOBIN 12.8 GM/dL (11.7-16.9); LYMPH % 17.2 % (8-40); MCH 35.3 pg (25.7-33.7); MCHC 33.6 g/dl (32.0-35.9); MEAN CELL VOLUME 104.9 fl (80-96); MEAN PLT VOLUME 10.6 fl (7.5-11.1); MONO % 9.2 % (3.8-10.2); NEUT % 72.4 % (42.8-82.8); PLATELET COUNT 83 10^3/uL (134-434); RBC 3.64 M/mm3 (4.00-5.60); RDW 17.2 % (11.9-15.9)
[2022-12-11] MEDS: rOPINIRole HCL 3 MG TABLET PO SCH (21:29)
[2022-12-11] MEDS ORDERED: ACETAMINOPHEN 1000 MG/100 ML BAG IVPB ONE (22:11)
[2022-12-12] MEDS: LORazepam 2 MG/ML SDV VIAL IVPUSH PRN ×2 (01:57→05:11)
[2022-12-12] MEDS: TRIMETHOBENZAMIDE HCL 200MG/2ML INJ IM PRN ×2 (01:57→05:06)
[2022-12-12 03:07] VITALS: RESP 18
[2022-12-12] MEDS ORDERED: chlordiazePOXIDE HCL 10 MG CAPSULE PO SCH (05:00)
[2022-12-12 08:48] LABS: ALBUMIN 2.8 g/dl (3.4-5.0); BILIRUBIN,TOTAL 1.9 mg/dl (0.2-1); CALCIUM 7.9 mg/dl (8.5-10); CREATININE 0.5 mg/dl (0.55-1.3); MAGNESIUM 1.7 mg/dL (1.8-2.4); PHOSPHOROUS 2.5 mg/dl (2.5-4.9); TOT PROT 5.7 g/dl (6.4-8.2)
[2022-12-12] MEDS ORDERED: MAGNESIUM SULF 50% (8.12 MEQ/2 ML-1 GM VIAL) IVPB ONE (08:50)
[2022-12-12] MEDS ORDERED: MAGNESIUM 1GM/D5W - 1 GM/100 ML IVPB IVPB ONE (09:00)
[2022-12-12] MEDS: amLODIPine BESYLATE 10 MG TABLET (FP) PO SCH (09:43)
[2022-12-12] MEDS: ENOXAPARIN NA (PORCINE) 40 MG/0.4 ML DISP.SYRIN SQ SCH (09:44)
[2022-12-12] MEDS: NICOTINE 14 MG/24 HOURS TOPICAL PATCH TD SCH (09:44)
[2022-12-12 11:49] LABS: BASO % 0.5 % (0-2.0); EOS % 1.1 % (0-4.5); HEMATOCRIT 39.4 % (35.4-49); HEMOGLOBIN 13.3 GM/dL (11.7-16.9); LYMPH % 17.1 % (8-40); MCH 35.7 pg (25.7-33.7); MCHC 33.9 g/dl (32.0-35.9); MEAN CELL VOLUME 105.3 fl (80-96); MEAN PLT VOLUME 10.9 fl (7.5-11.1); MONO % 11.5 % (3.8-10.2); NEUT % 69.8 % (42.8-82.8); PLATELET COUNT 83 10^3/uL (134-434); RBC 3.74 M/mm3 (4.00-5.60); RDW 16.9 % (11.9-15.9)
[2022-12-12 12:12] LABS: ANISOCYTOSIS 1+; MACROCYTOSIS 1+
[2022-12-12] MEDS ORDERED: THIAMINE HCL 100 MG TABLET (FP) PO SCH (12:15)
[2022-12-12] MEDS ORDERED: FOLIC ACID 1 MG TABLET (FP) PO SCH (12:15)
[2022-12-12 14:25] VITALS: BP 142/86; PULSE 92; TEMP 98.4
[2022-12-13] MEDS ORDERED: chlordiazePOXIDE HCL 10 MG CAPSULE PO SCH (05:00)
[2022-12-14] MEDS ORDERED: chlordiazePOXIDE HCL 10 MG CAPSULE PO ONE (05:00)
== END 2022-12-12 14:27 | disposition home or self-care (01) | DRG 897 ==
LOC: FER 09:04 → FM/S 14:19 → INTOOBSV 14:19 → FM/S 17:56 → OBSVTOIN 12-10 12:20
PROVIDERS: ADMIT Internal Medicine; ATTEND Internal Medicine
PROC: HZ2ZZZZ Detoxification Services for Substance Abuse Treatment (ICD-10-PCS; principal; 2022-12-10)
DX: F10.232 Alcohol dependence with withdrawal with perceptual disturbance (principal); E87.1 Hypo-osmolality and hyponatremia; R11.2 Nausea with vomiting, unspecified; I10 Essential (primary) hypertension; K70.10 Alcoholic hepatitis without ascites; F12.90 Cannabis use, unspecified, uncomplicated; E80.6 Other disorders of bilirubin metabolism; R45.1 Restlessness and agitation; E83.42 Hypomagnesemia; E87.6 Hypokalemia
CPT/HCPCS: 36415; 71045-TC-FY; 74177-TC; 80053; 80307; 83605; 83690; 83735; 84100; 85025; 85027; 93005; 97116-GP; 97162-GP; 99291; C9803-CS; G0378; Q9967; U0003; U0005

== ENCOUNTER 2023-01-28 16:27 | Inpatient (IN) | payer OTHER ==
[2023-01-28 17:30] VITALS: BMI 25.0
[2023-01-28] MEDS ORDERED: chlordiazePOXIDE HCL 25 MG CAPSULE PO PRN (22:29)
[2023-01-28] MEDS ORDERED: TRIMETHOBENZAMIDE HCL 200MG/2ML INJ IM ONE ×2 (22:29→23:11)
[2023-01-28] MEDS ORDERED: MAGNESIUM HYDROX 2400MG/30ML ORAL SUSPENSION 30 ML CUP PO PRN (22:31)
[2023-01-28] MEDS ORDERED: ONDANSETRON *ODT* 4 MG TABLET SL PRN (22:31)
[2023-01-28] MEDS ORDERED: MAG HYDROX/AL HYDROX/SIMETH 30 ML UNIT-DOSE CUP PO PRN (22:31)
[2023-01-28] MEDS ORDERED: P-EPHED 60MG/TRIPROLIDI 2.5MG TABLET PO PRN (22:31)
[2023-01-28] MEDS ORDERED: BISMUTH SUBSALICYLATE 524 MG/30 ML PO PRN (22:31)
[2023-01-28] MEDS ORDERED: BENZONATATE 200 MG CAPSULE PO PRN (22:31)
[2023-01-28] MEDS ORDERED: IBUPROFEN 400 MG TABLET (FP) PO PRN (22:31)
[2023-01-28] MEDS ORDERED: POLYETHYLENE GLYCOL (HEALTHYLAX) 3350 17 GM PACKET PO PRN (22:31)
[2023-01-28] MEDS ORDERED: IBUPROFEN 600 MG TABLET (FP) PO PRN (22:31)
[2023-01-28] MEDS ORDERED: BENZOCAINE/MENTHOL (CHLORASEPTIC ) LOZENGE MM PRN (22:31)
[2023-01-28] MEDS ORDERED: guaiFENesin 600 MG TABLET.ER (FP) PO PRN (22:31)
[2023-01-28] MEDS ORDERED: LOPERAMIDE HCL 2 MG CAPSULE PO PRN (22:31)
[2023-01-28] MEDS ORDERED: chlordiazePOXIDE HCL 25 MG CAPSULE ONE (23:00)
[2023-01-28] MEDS: chlordiazePOXIDE HCL 25 MG CAPSULE PO SCH (23:02)
[2023-01-29] MEDS: chlordiazePOXIDE HCL 25 MG CAPSULE PO SCH ×4 (05:40→22:38)
[2023-01-29] MEDS: ACETAMINOPHEN 325 MG TABLET (FP) PO PRN ×2 (05:41→22:41)
[2023-01-29] MEDS: PRENATAL VITAMINS W/ FOLIC ACID TABLET (FP) PO SCH (10:32)
[2023-01-29] MEDS: amLODIPine BESYLATE 10 MG TABLET (FP) PO SCH (10:33)
[2023-01-29] MEDS: FOLIC ACID 1 MG TABLET (FP) PO SCH (10:53)
[2023-01-29 11:05] LABS: HEMATOCRIT 37.2 % (35.4-49); HEMOGLOBIN 12.5 GM/dL (11.7-16.9); MCH 34.4 pg (25.7-33.7); MCHC 33.6 g/dl (32.0-35.9); MEAN CELL VOLUME 102.6 fl (80-96); MEAN PLT VOLUME 10.2 fl (7.5-11.1); PLATELET COUNT 59 10^3/uL (134-434); RBC 3.63 M/mm3 (4.00-5.60); RDW 15.9 % (11.9-15.9); WHITE BLOOD COUNT 6.4 K/mm3 (4.0-10.0)
[2023-01-29 11:12] LABS: POTASSIUM 3.5 mmol/L (3.5-5.1)
[2023-01-29 11:21] LABS: ALBUMIN 2.5 g/dl (3.4-5.0); BLOOD UREA NITROGEN 3.9 mg/dL (7-18); CALCIUM 8.4 mg/dL (8.5-10.1)
[2023-01-29 11:24] LABS: CREATININE 0.8 mg/dL (0.55-1.3)
[2023-01-29 11:26] LABS: TOT PROT 5.8 g/dl (6.4-8.2)
[2023-01-29] MEDS ORDERED: PNEUMOC 20-VAL CONJ-DIP CRM/PF 0.5 ML SYRINGE IM ONE (12:00)
[2023-01-29] MEDS ORDERED: FLU VACC QS2022-23(6MOS UP)/PF 60 MCG/0.5 ML SYRINGE IM ONE (12:00)
[2023-01-29] MEDS ORDERED: rOPINIRole HCL 3 MG TABLET PO SCH (22:00)
[2023-01-29] MEDS ORDERED: rOPINIRole HCL 1 MG TABLET (FP) PO SCH (22:00)
[2023-01-29] MEDS: THIAMINE HCL 100 MG TABLET (FP) PO SCH (22:37)
[2023-01-29] MEDS: MELATONIN 5 MG TABLETS PO PRN (22:39)
[2023-01-30] MEDS: chlordiazePOXIDE HCL 25 MG CAPSULE PO SCH ×4 (05:24→22:04)
[2023-01-30] MEDS: DICYCLOMINE HCL 10 MG CAPSULE PO PRN (05:25)
[2023-01-30] MEDS: amLODIPine BESYLATE 10 MG TABLET (FP) PO SCH (10:30)
[2023-01-30] MEDS: PRENATAL VITAMINS W/ FOLIC ACID TABLET (FP) PO SCH (10:30)
[2023-01-30] MEDS: FOLIC ACID 1 MG TABLET (FP) PO SCH (10:30)
[2023-01-30] MEDS: ACETAMINOPHEN 325 MG TABLET (FP) PO PRN ×2 (10:32→20:39)
[2023-01-30] MEDS ORDERED: rOPINIRole HCL 3 MG TABLET PO SCH (12:31)
[2023-01-30] MEDS: THIAMINE HCL 100 MG TABLET (FP) PO SCH (22:03)
[2023-01-30] MEDS: MELATONIN 5 MG TABLETS PO PRN (22:04)
[2023-01-31] MEDS ORDERED: chlordiazePOXIDE HCL 10 MG CAPSULE PO PRN
[2023-01-31] MEDS: DICYCLOMINE HCL 10 MG CAPSULE PO PRN (03:00)
[2023-01-31] MEDS: chlordiazePOXIDE HCL 10 MG CAPSULE PO SCH ×2 (05:33→11:00)
[2023-01-31 07:29] VITALS: RESP 18
[2023-01-31 09:54] VITALS: BP 125/80; PULSE 116; TEMP 97.3
[2023-01-31] MEDS: FOLIC ACID 1 MG TABLET (FP) PO SCH (10:07)
[2023-01-31] MEDS: PRENATAL VITAMINS W/ FOLIC ACID TABLET (FP) PO SCH (10:07)
[2023-01-31] MEDS: amLODIPine BESYLATE 10 MG TABLET (FP) PO SCH (10:07)
[2023-02-01] MEDS ORDERED: chlordiazePOXIDE HCL 10 MG CAPSULE PO SCH (05:00)
[2023-02-02] MEDS ORDERED: chlordiazePOXIDE HCL 10 MG CAPSULE PO ONE (05:00)
== END 2023-01-31 15:42 | disposition short-term general hospital (02) | DRG 897 ==
LOC: YASAS 16:27 → Y6N 22:31
PROVIDERS: ADMIT Allergy & Immunology; ATTEND Surgery
PROC: HZ2ZZZZ Detoxification Services for Substance Abuse Treatment (ICD-10-PCS; principal; 2023-01-28)
DX: F10.230 Alcohol dependence with withdrawal, uncomplicated (principal); F17.210 Nicotine dependence, cigarettes, uncomplicated; F41.9 Anxiety disorder, unspecified; F32.A Depression, unspecified; G47.30 Sleep apnea, unspecified; I10 Essential (primary) hypertension; R79.89 Other specified abnormal findings of blood chemistry; Z86.59 Personal history of other mental and behavioral disorders
CPT/HCPCS: 36415; 80053; 85027; 86780; 90677; C9803-CS; G0008; Q0162; Q2036; U0003; U0005

== ENCOUNTER 2023-01-31 10:51 | Inpatient (IN) | payer OTHER ==
[2023-01-31 11:11] VITALS: BMI 25.0
[2023-01-31] MEDS ORDERED: chlordiazePOXIDE HCL 10 MG CAPSULE ONE (11:55)
[2023-01-31 11:59] LABS: BASO % 0.6 % (0-2.0); EOS % 0.5 % (0-4.5); HEMATOCRIT 38.5 % (35.4-49); MCH 34.4 pg (25.7-33.7); MCHC 33.7 g/dl (32.0-35.9); MEAN PLT VOLUME 10.6 fl (7.5-11.1); NEUT % 76.9 % (42.8-82.8); PLATELET COUNT 64 10^3/uL (134-434); RBC 3.77 M/mm3 (4.00-5.60); WHITE BLOOD COUNT 8.3 K/mm3 (4.0-10.0)
[2023-01-31] MEDS ORDERED: chlordiazePOXIDE HCL 10 MG CAPSULE PO SCH (12:00)
[2023-01-31 12:03] LABS: EPI CELLS 10 /uL (0-25.1); HYALINE CASTS 3 /uL (0-3.1); PH,URINE 5.5 (5.0-8.0); URINE APPEARANCE CLEAR; URINE BILIRUBIN 2+ (NEGATIVE); URINE COLOR ORANGE; URINE GLUCOSE (UA) NEGATIVE (NEGATIVE); URINE KETONE TRACE (NEGATIVE); URINE LEUK ESTERASE 1+ (NEGATIVE); URINE PROTEIN 1+ (NEGATIVE); URINE RBC 19 /uL (0-23.9); URINE WBC 28 /uL (0-25.8)
[2023-01-31 12:06] LABS: INR 1.26 (0.83-1.09); PROTHROMBIN TIME (PATIENT) 14.6 SEC (9.7-13.0)
[2023-01-31 12:08] LABS: ACTIVATED PTT 33.5 SECONDS (25.2-36.5)
[2023-01-31 12:21] LABS: VENOUS BASE EXCESS 0.4 mmol/L (-2-2); VENOUS O2 SATURATION 71.8 % (70-80); VENOUS PCO2 37.3 mmHg (38-52); VENOUS PH 7.432 (7.310-7.410)
[2023-01-31 12:23] LABS: URINE BACTERIA 1.9 /uL (0-1359); URINE NITRITE NEGATIVE (NEGATIVE)
[2023-01-31] MEDS ORDERED: diazePAM CARPU-JECT 10 MG/2 ML DISP.SYRIN IVPUSH ONE ×2 (12:25→12:44)
[2023-01-31] MEDS ORDERED: diazePAM CARPU-JECT 10 MG/2 ML DISP.SYRIN ONE (12:27)
[2023-01-31 12:28] LABS: CHLORIDE 102 mmol/L (98-107); POTASSIUM 3.6 mmol/L (3.5-5.1); SODIUM 134 mmol/L (136-145)
[2023-01-31 12:30] LABS: ALBUMIN 2.8 g/dl (3.4-5.0); ANION GAP 5 MMOL/L (8-16); CALCIUM 8.9 mg/dL (8.5-10.1); CO2 27 mmol/L (21-32); LIPASE 55 U/L (73-393)
[2023-01-31 12:31] LABS: BLOOD UREA NITROGEN 11.2 mg/dL (7-18); GLUCOSE,RANDOM 93 mg/dL (74-106); MAGNESIUM 1.5 mg/dL (1.8-2.4)
[2023-01-31 12:33] LABS: CREATININE 0.7 mg/dL (0.55-1.3); PHOSPHOROUS 2.4 mg/dL (2.5-4.9); SGOT/AST 98 U/L (15-37)
[2023-01-31 12:35] LABS: BILIRUBIN,TOTAL 2.7 mg/dL (0.2-1); TOT PROT 6.4 g/dl (6.4-8.2)
[2023-01-31 13:04] LABS: ALK PHOS 147 U/L (45-117); SGPT/ALT 55 U/L (13-61)
[2023-01-31] MEDS ORDERED: LORazepam 2 MG/ML SDV VIAL IVPUSH ONE ×2 (13:09→15:05)
[2023-01-31] MEDS ORDERED: LACTULOSE 20 GM/30 ML UDC (FOR ORAL USE ONLY) PO ONE (13:28)
[2023-01-31] MEDS ORDERED: LACTULOSE 20 GM/30 ML UDC (FOR ORAL USE ONLY) ONE ×2 (13:42→23:44)
[2023-01-31] MEDS ORDERED: HALOPERIDOL LACTATE 5 MG/ML IM PRN (15:22)
[2023-01-31] MEDS ORDERED: LORazepam 2 MG/ML SDV VIAL IVPUSH PRN (15:23)
[2023-01-31] MEDS ORDERED: LACTATED RINGERS SOLUTION 1,000 ML/1,000 ML INFUS.BAG IV SCH (15:30)
[2023-01-31] MEDS ORDERED: THIAMINE HCL 200 MG/2 ML VIAL IM SCH (15:45)
[2023-01-31] MEDS ORDERED: THIAMINE HCL 200 MG/2 ML VIAL ONE (16:16)
[2023-01-31] MEDS ORDERED: HEPARIN NA (PORCINE) 5,000 UNITS/ML 1ML VIAL SQ SCH (22:00)
[2023-01-31] MEDS ORDERED: HEPARIN NA (PORCINE) 5,000 UNITS/ML 1ML VIAL ONE (23:45)
[2023-01-31] MEDS: LACTULOSE 20 GM/30 ML UDC (FOR ORAL USE ONLY) PO SCH (23:50)
[2023-01-31] MEDS: rOPINIRole HCL 3 MG TABLET PO SCH (23:51)
[2023-02-01 06:23] LABS: BASO % 0.7 % (0-2.0); EOS % 0.5 % (0-4.5); HEMOGLOBIN 13.1 GM/dL (11.7-16.9); LYMPH % 14.9 % (8-40); MCH 35.1 pg (25.7-33.7); MCHC 34.5 g/dl (32.0-35.9); MEAN CELL VOLUME 101.5 fl (80-96); MEAN PLT VOLUME 10.2 fl (7.5-11.1); MONO % 9.5 % (3.8-10.2); NEUT % 74.4 % (42.8-82.8); PLATELET COUNT 57 10^3/uL (134-434); RBC 3.75 M/mm3 (4.00-5.60); RDW 15.4 % (11.9-15.9); WHITE BLOOD COUNT 7.8 K/mm3 (4.0-10.0)
[2023-02-01] MEDS: LACTULOSE 20 GM/30 ML UDC (FOR ORAL USE ONLY) PO SCH ×3 (06:30→21:10)
[2023-02-01 06:43] LABS: POTASSIUM 3.5 mmol/L (3.5-5.1)
[2023-02-01 06:46] LABS: CALCIUM 8.3 mg/dL (8.5-10.1)
[2023-02-01 06:47] LABS: BLOOD UREA NITROGEN 8.8 mg/dL (7-18)
[2023-02-01 06:48] LABS: ALBUMIN 2.6 g/dl (3.4-5.0)
[2023-02-01 06:50] LABS: CREATININE 0.5 mg/dL (0.55-1.3)
[2023-02-01 06:51] LABS: BILIRUBIN,DIRECT 1.6 mg/dL (0.0-0.2)
[2023-02-01 07:45] LABS: BILIRUBIN,TOTAL 2.6 mg/dL (0.2-1)
[2023-02-01] MEDS ORDERED: MAGNESIUM SULF 50% (8.12 MEQ/2 ML-1 GM VIAL) IVPB ONE (08:00)
[2023-02-01] MEDS ORDERED: MAGNESIUM SULFATE IN WATER 2 GM/50 ML IVPB IVPB ONE (08:49)
[2023-02-01] MEDS ORDERED: amLODIPine BESYLATE 10 MG TABLET (FP) ONE (08:49)
[2023-02-01] MEDS ORDERED: FOLIC ACID 1 MG TABLET (FP) ONE (08:49)
[2023-02-01] MEDS ORDERED: SODIUM PHOSPHATE - 15 MM in SODIUM CHLORIDE 250 ML IVPB ONE (09:00)
[2023-02-01] MEDS: THIAMINE HCL 200 MG/2 ML VIAL IVPB SCH ×3 (09:08→21:10)
[2023-02-01] MEDS: FOLIC ACID 1 MG TABLET (FP) PO SCH (09:08)
[2023-02-01] MEDS: amLODIPine BESYLATE 10 MG TABLET (FP) PO SCH (09:08)
[2023-02-01] MEDS ORDERED: THIAMINE HCL 100 MG TABLET (FP) PO SCH (10:00)
[2023-02-01] MEDS ORDERED: THIAMINE HCL 200 MG/2 ML VIAL ONE (10:15)
[2023-02-01] MEDS ORDERED: LORazepam 2 MG/ML SDV VIAL IVPUSH PRN (10:29)
[2023-02-01] MEDS: DEXTROSE 5%-LACTATED RINGERS 1,000 ML IV SCH ×2 (11:30→21:18)
[2023-02-01] MEDS ORDERED: LACTULOSE 20 GM/30 ML UDC (FOR ORAL USE ONLY) ONE (14:12)
[2023-02-01] MEDS: rOPINIRole HCL 3 MG TABLET PO SCH (21:50)
[2023-02-02] MEDS: LACTULOSE 20 GM/30 ML UDC (FOR ORAL USE ONLY) PO SCH ×3 (05:07→22:12)
[2023-02-02] MEDS: THIAMINE HCL 200 MG/2 ML VIAL IVPB SCH ×2 (05:26→14:29)
[2023-02-02 07:33] LABS: HEMATOCRIT 39.1 % (35.4-49); HEMOGLOBIN 13.7 GM/dL (11.7-16.9); MCHC 35.1 g/dl (32.0-35.9); MEAN CELL VOLUME 102.4 fl (80-96); MEAN PLT VOLUME 11.3 fl (7.5-11.1); PLATELET COUNT 74 10^3/uL (134-434); RBC 3.82 M/mm3 (4.00-5.60); RDW 15.5 % (11.9-15.9); WHITE BLOOD COUNT 6.5 K/mm3 (4.0-10.0)
[2023-02-02 07:51] LABS: POTASSIUM 3.7 mmol/L (3.5-5.1)
[2023-02-02 07:54] LABS: ALBUMIN 2.4 g/dl (3.4-5.0); BLOOD UREA NITROGEN 10.3 mg/dL (7-18); MAGNESIUM 1.7 mg/dL (1.8-2.4)
[2023-02-02 07:57] LABS: CREATININE 0.5 mg/dL (0.55-1.3); PHOSPHOROUS 2.9 mg/dL (2.5-4.9)
[2023-02-02 07:58] LABS: TOT PROT 5.8 g/dl (6.4-8.2)
[2023-02-02] MEDS ORDERED: MAGNESIUM 2GM/50ML STERILE WATER IVPB IVPB ONE (08:45)
[2023-02-02] MEDS: FOLIC ACID 1 MG TABLET (FP) PO SCH (09:48)
[2023-02-02] MEDS: amLODIPine BESYLATE 10 MG TABLET (FP) PO SCH (09:49)
[2023-02-02] MEDS: DEXTROSE 5%-LACTATED RINGERS 1,000 ML IV SCH (12:06)
[2023-02-02] MEDS ORDERED: TRIMETHOBENZAMIDE HCL 200MG/2ML INJ IM ONE (18:08)
[2023-02-02] MEDS: rOPINIRole HCL 3 MG TABLET PO SCH (22:12)
[2023-02-03] MEDS: LACTULOSE 20 GM/30 ML UDC (FOR ORAL USE ONLY) PO SCH (07:02)
[2023-02-03 08:22] LABS: POTASSIUM 3.3 mmol/L (3.5-5.1)
[2023-02-03 08:23] LABS: INR 1.21 (0.83-1.09)
[2023-02-03 08:28] LABS: BLOOD UREA NITROGEN 11.5 mg/dL (7-18); CALCIUM 7.8 mg/dL (8.5-10.1)
[2023-02-03 08:29] LABS: ALBUMIN 2.3 g/dl (3.4-5.0); MAGNESIUM 1.9 mg/dL (1.8-2.4)
[2023-02-03 08:32] LABS: CREATININE 0.6 mg/dL (0.55-1.3)
[2023-02-03 08:33] LABS: BILIRUBIN,TOTAL 1.8 mg/dL (0.2-1); TOT PROT 5.3 g/dl (6.4-8.2)
[2023-02-03] MEDS ORDERED: POTASSIUM CHLORIDE TABS 20 MEQ TABLET.ER (FP) PO ONE (08:40)
[2023-02-03 08:49] VITALS: RESP 18
[2023-02-03] MEDS ORDERED: ESCITALOPRAM OXALATE 10 MG TABLET PO SCH (10:00)
[2023-02-03] MEDS ORDERED: THIAMINE HCL 100 MG TABLET (FP) PO SCH (10:00)
[2023-02-03] MEDS: FOLIC ACID 1 MG TABLET (FP) PO SCH (10:14)
[2023-02-03] MEDS: amLODIPine BESYLATE 10 MG TABLET (FP) PO SCH (10:14)
[2023-02-03 14:25] VITALS: BP 121/76; PULSE 92; TEMP 98.1
[2023-02-03 16:05] LABS: POTASSIUM 3.7 mmol/L (3.5-5.1)
[2023-02-03 16:07] LABS: CALCIUM 8.4 mg/dL (8.5-10.1)
[2023-02-03 16:08] LABS: BLOOD UREA NITROGEN 11.1 mg/dL (7-18)
[2023-02-03 16:11] LABS: CREATININE 0.6 mg/dL (0.55-1.3)
[2023-02-03] MEDS ORDERED: LACTULOSE 20 GM/30 ML UDC (FOR ORAL USE ONLY) PO SCH (22:00)
[2023-02-04] MEDS ORDERED: PANTOPRAZOLE 40 MG TABLET PO SCH (10:00)
== END 2023-02-03 15:07 | disposition home or self-care (01) | DRG 442 ==
LOC: JER 10:51 → JERBED 14:45 → J7W 02-01 16:13
PROVIDERS: ADMIT Internal Medicine; ATTEND Internal Medicine
PROC: HZ2ZZZZ Detoxification Services for Substance Abuse Treatment (ICD-10-PCS; principal; 2023-01-31)
DX: K76.82 Hepatic encephalopathy (principal); F10.239 Alcohol dependence with withdrawal, unspecified; R17 Unspecified jaundice; F41.8 Other specified anxiety disorders; G20 Parkinson's disease; R41.82 Altered mental status, unspecified; K70.10 Alcoholic hepatitis without ascites; G25.81 Restless legs syndrome; K76.0 Fatty (change of) liver, not elsewhere classified; R74.9 Abnormal serum enzyme level, unspecified
CPT/HCPCS: 0241U-QW; 36415; 70450-TC; 71045-TC-FY; 74178-TC; 76705-TC; 76775-TC; 80048; 80053; 80076; 80307; 81003; 82140; 82550; 82803; 82962; 82977; 83605; 83690; 83735; 84100; 84484; 85025; 85027; 85610; 85730; 86850; 86900; 86901; 87086; 93005; 93010; 99291; J1644; Q9967

== ENCOUNTER 2023-04-02 10:19 | Inpatient (IN) | payer OTHER ==
[2023-04-02 10:27] VITALS: BMI 25.7
[2023-04-02] MEDS ORDERED: ACETAMINOPHEN 1000 MG/100 ML BAG IVPB ONE (11:25)
[2023-04-02] MEDS ORDERED: FUROSEMIDE 100 MG/10 ML INJECTABLE VIAL IVPB ONE (11:27)
[2023-04-02] MEDS ORDERED: ACETAMINOPHEN INJECTION 100 ML IVPB ONE (11:43)
[2023-04-02] MEDS ORDERED: FUROSEMIDE 40 MG/4 ML INJECTABLE VIAL ONE (11:43)
[2023-04-02 11:53] LABS: PH,URINE 5.5 (5.0-8.0); URINE APPEARANCE CLEAR; URINE BILIRUBIN 1+ (NEGATIVE); URINE COLOR DK YELLOW; URINE GLUCOSE (UA) NEGATIVE (NEGATIVE); URINE KETONE NEGATIVE (NEGATIVE); URINE LEUK ESTERASE NEGATIVE (NEGATIVE); URINE NITRITE NEGATIVE (NEGATIVE); URINE PROTEIN NEGATIVE (NEGATIVE)
[2023-04-02 11:59] LABS: BASO % 1.1 % (0-2.0); EOS % 1.1 % (0-4.5); HEMATOCRIT 38.3 % (35.4-49); HEMOGLOBIN 12.6 GM/dL (11.7-16.9); LYMPH % 19.4 % (8-40); MCH 33.2 pg (25.7-33.7); MEAN CELL VOLUME 100.6 fl (80-96); MEAN PLT VOLUME 9.4 fl (7.5-11.1); MONO % 9.6 % (3.8-10.2); NEUT % 68.8 % (42.8-82.8); PLATELET COUNT 188 10^3/uL (134-434); WHITE BLOOD COUNT 7.5 K/mm3 (4.0-10.0)
[2023-04-02 12:01] LABS: INR 1.13 (0.83-1.09); PROTHROMBIN TIME (PATIENT) 13.1 SEC (9.7-13.0)
[2023-04-02 12:11] LABS: POTASSIUM 3.7 mmol/L (3.5-5.1)
[2023-04-02 12:15] LABS: ALBUMIN 2.6 g/dl (3.4-5.0); BLOOD UREA NITROGEN 5.5 mg/dL (7-18)
[2023-04-02 12:18] LABS: CREATININE 0.8 mg/dL (0.55-1.3)
[2023-04-02 12:19] LABS: BILIRUBIN,TOTAL 1.4 mg/dL (0.2-1); TOT PROT 6.4 g/dl (6.4-8.2)
[2023-04-02 14:45] LABS: BF WBC & OTHER NUCLEATED CELLS 140 /mm3
[2023-04-02] MEDS ORDERED: CEFTRIAXONE 2 GM in DEXTROSE 5%-WATER - 100 ML IVPB ONE (15:11)
[2023-04-02] MEDS: FOLIC ACID 1 MG TABLET (FP) PO SCH (15:19)
[2023-04-02] MEDS: THIAMINE HCL 100 MG TABLET (FP) PO SCH (15:19)
[2023-04-02] MEDS: SPIRONOLACTONE 25 MG TABLET PO SCH (15:19)
[2023-04-02 15:26] LABS: BODY FLUID MESOTHELIAL 1 %; BODY FLUID MONOCYTE 87 %
[2023-04-02] MEDS: MULTIVITAMINS (DAILY MVI) TABLET (FP) PO SCH (16:00)
[2023-04-02 17:37] VITALS: RESP 18
[2023-04-02] MEDS ORDERED: TRIMETHOBENZAMIDE HCL 200MG/2ML INJ IM PRN (21:53)
[2023-04-02] MEDS ORDERED: rOPINIRole HCL 3 MG TABLET PO SCH (22:00)
[2023-04-03 09:31] LABS: BASO % 0.8 % (0-2.0); EOS % 0.4 % (0-4.5); HEMATOCRIT 36.8 % (35.4-49); LYMPH % 13.9 % (8-40); MCH 32.9 pg (25.7-33.7); MCHC 32.7 g/dl (32.0-35.9); MEAN CELL VOLUME 100.4 fl (80-96); MEAN PLT VOLUME 9.5 fl (7.5-11.1); MONO % 8.4 % (3.8-10.2); NEUT % 76.5 % (42.8-82.8); PLATELET COUNT 151 10^3/uL (134-434); RBC 3.66 M/mm3 (4.00-5.60); RDW 14.2 % (11.9-15.9)
[2023-04-03 09:50] LABS: POTASSIUM 3.5 mmol/L (3.5-5.1)
[2023-04-03 09:53] VITALS: BP 122/71; PULSE 80; TEMP 98.1
[2023-04-03] MEDS: SPIRONOLACTONE 25 MG TABLET PO SCH (09:54)
[2023-04-03] MEDS: MULTIVITAMINS (DAILY MVI) TABLET (FP) PO SCH (09:54)
[2023-04-03] MEDS: FOLIC ACID 1 MG TABLET (FP) PO SCH (09:54)
[2023-04-03] MEDS: THIAMINE HCL 100 MG TABLET (FP) PO SCH (09:54)
[2023-04-03 09:58] LABS: BLOOD UREA NITROGEN 9.9 mg/dL (7-18); CALCIUM 8.7 mg/dL (8.5-10.1)
[2023-04-03 09:59] LABS: ALBUMIN 2.5 g/dl (3.4-5.0); MAGNESIUM 1.7 mg/dL (1.8-2.4)
[2023-04-03] MEDS ORDERED: ENOXAPARIN NA (PORCINE) 40 MG/0.4 ML DISP.SYRIN SQ SCH (10:00)
[2023-04-03] MEDS ORDERED: FUROSEMIDE 40 MG TABLET (FP) PO SCH (10:00)
[2023-04-03 10:02] LABS: PHOSPHOROUS 3.5 mg/dL (2.5-4.9)
[2023-04-03 10:05] LABS: CREATININE 0.8 mg/dL (0.55-1.3)
[2023-04-03 10:06] LABS: BILIRUBIN,TOTAL 1.9 mg/dL (0.2-1)
[2023-04-04 13:07] LABS: BODY FLUID ALBUMIN 0.5 g/dL (Not Estab.)
== END 2023-04-03 12:35 | disposition home or self-care (01) | DRG 434 ==
LOC: JER 10:19 → JERBED 14:43 → OBSVTOIN 14:57 → J5S 18:11
PROVIDERS: ADMIT Internal Medicine; ATTEND Internal Medicine
PROC: 0W9G3ZZ Drainage of Peritoneal Cavity, Percutaneous Approach (ICD-10-PCS; principal; 2023-04-02)
DX: K70.31 Alcoholic cirrhosis of liver with ascites (principal); I10 Essential (primary) hypertension; G25.81 Restless legs syndrome; G20 Parkinson's disease; F32.A Depression, unspecified; F41.9 Anxiety disorder, unspecified; F10.10 Alcohol abuse, uncomplicated
CPT/HCPCS: 36415; 76942-TC; 80053; 81003; 82042; 82140; 82150; 82945; 83615; 83735; 83880; 84100; 84157; 85025; 85610; 85730; 87070; 87075; 87086; 87205; 93005; 93010; 99285-25; G0378; G0463

== ENCOUNTER 2023-04-21 12:39 | Emergency (ER) | payer OTHER ==
[2023-04-21 12:46] VITALS: BP 148/91; PULSE 100; RESP 19; TEMP 98.6; BMI 25.7
[2023-04-21] MEDS ORDERED: ONDANSETRON 4 MG/2 ML VIAL IVPUSH ONE (13:57)
[2023-04-21] MEDS ORDERED: ONDANSETRON 4 MG/2 ML VIAL ONE (13:59)
[2023-04-21 14:03] LABS: BASO % 0.9 % (0-2.0); EOS % 0.6 % (0-4.5); HEMATOCRIT 33.7 % (35.4-49); HEMOGLOBIN 11.6 GM/dL (11.7-16.9); LYMPH % 14.9 % (8-40); MCH 33.4 pg (25.7-33.7); MCHC 34.5 g/dl (32.0-35.9); MEAN CELL VOLUME 96.9 fl (80-96); MEAN PLT VOLUME 9.7 fl (7.5-11.1); MONO % 10.6 % (3.8-10.2); PLATELET COUNT 170 10^3/uL (134-434); RBC 3.47 M/mm3 (4.00-5.60); RDW 14.2 % (11.9-15.9); WHITE BLOOD COUNT 8.6 K/mm3 (4.0-10.0)
[2023-04-21 14:09] LABS: INR 1.24 (0.83-1.09); PROTHROMBIN TIME (PATIENT) 14.3 SEC (9.7-13.0)
[2023-04-21 14:12] LABS: ACTIVATED PTT 32.7 SECONDS (25.2-36.5)
[2023-04-21 14:42] LABS: POTASSIUM 3.3 mmol/L (3.5-5.1)
[2023-04-21 14:44] LABS: CALCIUM 7.8 mg/dL (8.5-10.1)
[2023-04-21 14:45] LABS: ALBUMIN 2.4 g/dl (3.4-5.0); MAGNESIUM 1.8 mg/dL (1.8-2.4)
[2023-04-21 14:48] LABS: CREATININE 0.8 mg/dL (0.55-1.3); PHOSPHOROUS 2.6 mg/dL (2.5-4.9)
[2023-04-21 14:49] LABS: BILIRUBIN,TOTAL 1.5 mg/dL (0.2-1); TOT PROT 5.6 g/dl (6.4-8.2)
[2023-04-21] MEDS ORDERED: POTASSIUM CHLORIDE ORAL LIQUID 20 MEQ/15 ML PO ONE (15:00)
[2023-04-21] MEDS ORDERED: POTASSIUM CHLORIDE ORAL LIQUID 20 MEQ/15 ML ONE (15:04)
[2023-04-21 15:39] LABS: PH,URINE 5.5 (5.0-8.0); URINE APPEARANCE CLEAR; URINE BILIRUBIN 1+ (NEGATIVE); URINE COLOR DK YELLOW; URINE GLUCOSE (UA) NEGATIVE (NEGATIVE); URINE KETONE NEGATIVE (NEGATIVE); URINE LEUK ESTERASE NEGATIVE (NEGATIVE); URINE NITRITE NEGATIVE (NEGATIVE); URINE PROTEIN NEGATIVE (NEGATIVE)
== END 2023-04-21 16:19 | disposition home or self-care (01) ==
LOC: JER 12:39
PROC: 3E033GC Introduction of Other Therapeutic Substance into Peripheral Vein, Percutaneous Approach (ICD-10-PCS; principal; 2023-04-21)
DX: R18.8 Other ascites (principal)
CPT/HCPCS: 36415; 80053; 81003; 83735; 84100; 85025; 85610; 85730; 86850; 86900; 86901; 87086; 99284-25

== ENCOUNTER 2023-04-23 13:03 | Observation (INO) | payer OTHER ==
[2023-04-23] MEDS ORDERED: ONDANSETRON 4 MG/2 ML VIAL ONE (14:39)
[2023-04-23 14:53] LABS: BASO % 1.3 % (0-2.0); EOS % 0.5 % (0-4.5); HEMATOCRIT 35.1 % (35.4-49); HEMOGLOBIN 11.6 GM/dL (11.7-16.9); LYMPH % 17.5 % (8-40); MCH 33.1 pg (25.7-33.7); MCHC 33.2 g/dl (32.0-35.9); MEAN CELL VOLUME 99.7 fl (80-96); MEAN PLT VOLUME 10.4 fl (7.5-11.1); MONO % 9.2 % (3.8-10.2); NEUT % 71.5 % (42.8-82.8); PLATELET COUNT 180 10^3/uL (134-434); RBC 3.52 M/mm3 (4.00-5.60); RDW 14.1 % (11.9-15.9); WHITE BLOOD COUNT 9.7 K/mm3 (4.0-10.0)
[2023-04-23 15:34] LABS: POTASSIUM 3.4 mmol/L (3.5-5.1)
[2023-04-23 15:37] LABS: BLOOD UREA NITROGEN 5.3 mg/dL (7-18); CALCIUM 8.2 mg/dL (8.5-10.1)
[2023-04-23 15:38] LABS: ALBUMIN 2.4 g/dl (3.4-5.0)
[2023-04-23 15:41] LABS: CREATININE 0.9 mg/dL (0.55-1.3)
[2023-04-23 15:42] LABS: TOT PROT 5.6 g/dl (6.4-8.2)
[2023-04-23 15:44] LABS: BILIRUBIN,TOTAL 1.3 mg/dL (0.2-1)
[2023-04-23] MEDS ORDERED: FUROSEMIDE 40 MG TABLET (FP) PO SCH (17:30)
[2023-04-23] MEDS ORDERED: SPIRONOLACTONE 25 MG TABLET PO SCH (17:30)
[2023-04-23 17:33] LABS: PH,URINE 5.5 (5.0-8.0); URINE APPEARANCE CLEAR; URINE BILIRUBIN NEGATIVE (NEGATIVE); URINE COLOR YELLOW; URINE GLUCOSE (UA) NEGATIVE (NEGATIVE); URINE KETONE NEGATIVE (NEGATIVE); URINE LEUK ESTERASE NEGATIVE (NEGATIVE); URINE NITRITE NEGATIVE (NEGATIVE); URINE PROTEIN NEGATIVE (NEGATIVE)
[2023-04-23 18:06] LABS: POTASSIUM 3.2 mmol/L (3.5-5.1)
[2023-04-23 18:07] LABS: CALCIUM 8.3 mg/dL (8.5-10.1)
[2023-04-23 18:08] LABS: BLOOD UREA NITROGEN 5.1 mg/dL (7-18)
[2023-04-23 18:11] LABS: CREATININE 0.8 mg/dL (0.55-1.3)
[2023-04-23] MEDS ORDERED: POTASSIUM CHLORIDE TABS 20 MEQ TABLET.ER (FP) PO ONE ×2 (19:56→22:45)
[2023-04-23] MEDS ORDERED: ACETAMINOPHEN 1000 MG/100 ML BAG IVPB ONE (20:32)
[2023-04-23] MEDS ORDERED: TRIMETHOBENZAMIDE HCL 200MG/2ML INJ IM ONE (21:00)
[2023-04-23] MEDS ORDERED: rOPINIRole HCL 3 MG TABLET PO SCH (22:00)
[2023-04-24 01:59] VITALS: BMI 26.4
[2023-04-24 06:09] VITALS: RESP 18
[2023-04-24] MEDS ORDERED: ACETAMINOPHEN 1000 MG/100 ML BAG IVPB ONE (07:00)
[2023-04-24] MEDS ORDERED: PANTOPRAZOLE SODIUM 40 MG VIAL IVPUSH ONE (07:00)
[2023-04-24 07:56] LABS: BASO % 1.3 % (0-2.0); EOS % 1.3 % (0-4.5); LYMPH % 21.2 % (8-40); MCHC 33.2 g/dl (32.0-35.9); MEAN CELL VOLUME 99.3 fl (80-96); MEAN PLT VOLUME 10.6 fl (7.5-11.1); MONO % 8.6 % (3.8-10.2); NEUT % 67.6 % (42.8-82.8); PLATELET COUNT 167 10^3/uL (134-434); RBC 3.33 M/mm3 (4.00-5.60); RDW 14.2 % (11.9-15.9); WHITE BLOOD COUNT 7.4 K/mm3 (4.0-10.0)
[2023-04-24 08:14] LABS: POTASSIUM 3.8 mmol/L (3.5-5.1)
[2023-04-24 08:19] LABS: BLOOD UREA NITROGEN 7.5 mg/dL (7-18)
[2023-04-24 08:22] LABS: CREATININE 0.9 mg/dL (0.55-1.3)
[2023-04-24 08:23] LABS: TOT PROT 5.1 g/dl (6.4-8.2)
[2023-04-24 09:45] VITALS: TEMP 98.2
[2023-04-24] MEDS ORDERED: ENOXAPARIN NA (PORCINE) 40 MG/0.4 ML DISP.SYRIN SQ SCH (10:00)
[2023-04-24 11:58] VITALS: BP 112/63; PULSE 79
[2023-04-24] MEDS ORDERED: rOPINIRole HCL 1 MG TABLET (FP) PO SCH (22:00)
== END 2023-04-24 11:55 | disposition home or self-care (01) ==
LOC: JER 13:03 → JERBED 16:54 → J7W 19:33
PROVIDERS: ADMIT Internal Medicine; ATTEND Internal Medicine
PROC: 3E033NZ Introduction of Analgesics, Hypnotics, Sedatives into Peripheral Vein, Percutaneous Approach (ICD-10-PCS; principal; 2023-04-23)
PROC: 3E033GC Introduction of Other Therapeutic Substance into Peripheral Vein, Percutaneous Approach (ICD-10-PCS; 2023-04-23)
PROC: 3E023GC Introduction of Other Therapeutic Substance into Muscle, Percutaneous Approach (ICD-10-PCS; 2023-04-23)
DX: K70.31 Alcoholic cirrhosis of liver with ascites (principal); I10 Essential (primary) hypertension; F10.99 Alcohol use, unspecified with unspecified alcohol-induced disorder; G20 Parkinson's disease; F41.8 Other specified anxiety disorders; G25.81 Restless legs syndrome; F17.210 Nicotine dependence, cigarettes, uncomplicated; F12.10 Cannabis abuse, uncomplicated
CPT/HCPCS: 36415; 76942-TC; 80048; 80053; 81003; 82140; 83615; 85025; 93005; 93010; 96372; 96374; 96375; 96376; 99285-25; G0378

== ENCOUNTER 2023-05-01 12:36 | Observation (INO) | payer OTHER ==
[2023-05-01 14:05] LABS: BASO % 1.1 % (0-2.0); EOS % 1.1 % (0-4.5); HEMATOCRIT 36.2 % (35.4-49); HEMOGLOBIN 11.9 GM/dL (11.7-16.9); LYMPH % 21.1 % (8-40); MCH 32.7 pg (25.7-33.7); MCHC 32.8 g/dl (32.0-35.9); MEAN CELL VOLUME 99.6 fl (80-96); MEAN PLT VOLUME 9.8 fl (7.5-11.1); MONO % 9.2 % (3.8-10.2); NEUT % 67.5 % (42.8-82.8); PLATELET COUNT 41 10^3/uL (134-434); RBC 3.64 M/mm3 (4.00-5.60); RDW 14.3 % (11.9-15.9); WHITE BLOOD COUNT 8.1 K/mm3 (4.0-10.0)
[2023-05-01 14:20] LABS: INR 1.28 (0.83-1.09); PROTHROMBIN TIME (PATIENT) 14.8 SEC (9.7-13.0)
[2023-05-01 14:45] LABS: ALBUMIN 2.2 g/dl (3.4-5.0); BLOOD UREA NITROGEN 6.9 mg/dL (7-18); CALCIUM 7.7 mg/dL (8.5-10.1); MAGNESIUM 1.8 mg/dL (1.8-2.4)
[2023-05-01 14:48] LABS: CREATININE 0.8 mg/dL (0.55-1.3)
[2023-05-01 14:50] LABS: TOT PROT 5.7 g/dl (6.4-8.2)
[2023-05-01 14:53] LABS: BILIRUBIN,TOTAL 1.6 mg/dL (0.2-1)
[2023-05-01 17:25] LABS: URINE APPEARANCE CLEAR; URINE BILIRUBIN 1+ (NEGATIVE); URINE COLOR DK YELLOW; URINE GLUCOSE (UA) NEGATIVE (NEGATIVE); URINE KETONE NEGATIVE (NEGATIVE); URINE LEUK ESTERASE NEGATIVE (NEGATIVE); URINE NITRITE NEGATIVE (NEGATIVE); URINE PROTEIN NEGATIVE (NEGATIVE)
[2023-05-01 19:02] VITALS: BMI 26.2
[2023-05-01] MEDS ORDERED: traMADol HCL 50 MG TABLET PO ONE (21:32)
[2023-05-01] MEDS: rOPINIRole HCL 3 MG TABLET PO SCH (22:16)
[2023-05-02 08:32] LABS: BASO % 0.8 % (0-2.0); EOS % 1.4 % (0-4.5); HEMATOCRIT 33.6 % (35.4-49); HEMOGLOBIN 11.3 GM/dL (11.7-16.9); LYMPH % 22.8 % (8-40); MCH 33.1 pg (25.7-33.7); MCHC 33.5 g/dl (32.0-35.9); MEAN CELL VOLUME 98.8 fl (80-96); MEAN PLT VOLUME 9.4 fl (7.5-11.1); MONO % 9.1 % (3.8-10.2); NEUT % 65.9 % (42.8-82.8); PLATELET COUNT 150 10^3/uL (134-434); RBC 3.41 M/mm3 (4.00-5.60); WHITE BLOOD COUNT 7.6 K/mm3 (4.0-10.0)
[2023-05-02 08:34] LABS: INR 1.24 (0.83-1.09); PROTHROMBIN TIME (PATIENT) 14.3 SEC (9.7-13.0)
[2023-05-02 08:48] LABS: ALBUMIN 1.9 g/dl (3.4-5.0); BLOOD UREA NITROGEN 8.9 mg/dL (7-18); CALCIUM 7.7 mg/dL (8.5-10.1); MAGNESIUM 1.9 mg/dL (1.8-2.4)
[2023-05-02 08:51] LABS: CREATININE 0.8 mg/dL (0.55-1.3)
[2023-05-02 08:53] LABS: BILIRUBIN,TOTAL 1.4 mg/dL (0.2-1); TOT PROT 4.9 g/dl (6.4-8.2)
[2023-05-02] MEDS: SPIRONOLACTONE 25 MG TABLET PO SCH (09:34)
[2023-05-02] MEDS: FUROSEMIDE 40 MG TABLET (FP) PO SCH (09:34)
[2023-05-02] MEDS: ENOXAPARIN NA (PORCINE) 40 MG/0.4 ML DISP.SYRIN SQ SCH (09:34)
[2023-05-02] MEDS: ACETAMINOPHEN 1000 MG/100 ML BAG IVPB PRN ×2 (10:29→17:47)
[2023-05-02] MEDS ORDERED: LACTULOSE 20 GM/30 ML UDC (FOR ORAL USE ONLY) PO PRN (17:02)
[2023-05-02] MEDS: rOPINIRole HCL 3 MG TABLET PO SCH (21:19)
[2023-05-03] MEDS: ACETAMINOPHEN 1000 MG/100 ML BAG IVPB PRN ×4 (04:25→20:40)
[2023-05-03] MEDS: SPIRONOLACTONE 25 MG TABLET PO SCH (09:11)
[2023-05-03] MEDS: ENOXAPARIN NA (PORCINE) 40 MG/0.4 ML DISP.SYRIN SQ SCH (09:12)
[2023-05-03] MEDS: FUROSEMIDE 40 MG TABLET (FP) PO SCH (09:12)
[2023-05-03 09:18] LABS: BASO % 0.7 % (0-2.0); EOS % 1.5 % (0-4.5); HEMATOCRIT 38.1 % (35.4-49); HEMOGLOBIN 12.5 GM/dL (11.7-16.9); LYMPH % 25.6 % (8-40); MCH 32.7 pg (25.7-33.7); MEAN CELL VOLUME 99.3 fl (80-96); MEAN PLT VOLUME 9.5 fl (7.5-11.1); MONO % 6.5 % (3.8-10.2); NEUT % 65.7 % (42.8-82.8); PLATELET COUNT 172 10^3/uL (134-434); RBC 3.83 M/mm3 (4.00-5.60); RDW 14.5 % (11.9-15.9); WHITE BLOOD COUNT 7.3 K/mm3 (4.0-10.0)
[2023-05-03 09:24] LABS: INR 1.24 (0.83-1.09); PROTHROMBIN TIME (PATIENT) 14.4 SEC (9.7-13.0)
[2023-05-03 09:38] LABS: POTASSIUM 3.5 mmol/L (3.5-5.1)
[2023-05-03 09:40] LABS: CALCIUM 7.9 mg/dL (8.5-10.1)
[2023-05-03 09:41] LABS: ALBUMIN 2.2 g/dl (3.4-5.0); BLOOD UREA NITROGEN 11.3 mg/dL (7-18); MAGNESIUM 1.9 mg/dL (1.8-2.4)
[2023-05-03 09:44] LABS: CREATININE 0.9 mg/dL (0.55-1.3)
[2023-05-03 09:46] LABS: BILIRUBIN,TOTAL 1.2 mg/dL (0.2-1); TOT PROT 5.8 g/dl (6.4-8.2)
[2023-05-03] MEDS: rOPINIRole HCL 3 MG TABLET PO SCH (21:18)
[2023-05-04] MEDS: ACETAMINOPHEN 1000 MG/100 ML BAG IVPB PRN ×2 (03:12→08:35)
[2023-05-04] MEDS: SPIRONOLACTONE 25 MG TABLET PO SCH (09:16)
[2023-05-04] MEDS: FUROSEMIDE 40 MG TABLET (FP) PO SCH (09:17)
[2023-05-04 09:53] LABS: BASO % 1.2 % (0-2.0); EOS % 1.8 % (0-4.5); HEMATOCRIT 38.9 % (35.4-49); HEMOGLOBIN 12.8 GM/dL (11.7-16.9); LYMPH % 18.3 % (8-40); MCH 32.8 pg (25.7-33.7); MEAN CELL VOLUME 99.4 fl (80-96); MEAN PLT VOLUME 9.5 fl (7.5-11.1); MONO % 7.6 % (3.8-10.2); NEUT % 71.1 % (42.8-82.8); PLATELET COUNT 174 10^3/uL (134-434); RBC 3.91 M/mm3 (4.00-5.60); RDW 14.4 % (11.9-15.9); WHITE BLOOD COUNT 10.1 K/mm3 (4.0-10.0)
[2023-05-04 10:00] LABS: INR 1.14 (0.83-1.09); PROTHROMBIN TIME (PATIENT) 13.2 SEC (9.7-13.0)
[2023-05-04 10:45] LABS: CALCIUM 8.5 mg/dL (8.5-10.1)
[2023-05-04 10:46] LABS: ALBUMIN 2.4 g/dl (3.4-5.0); MAGNESIUM 1.9 mg/dL (1.8-2.4)
[2023-05-04 10:49] LABS: CREATININE 0.9 mg/dL (0.55-1.3)
[2023-05-04 10:50] LABS: BILIRUBIN,TOTAL 1.2 mg/dL (0.2-1)
[2023-05-04 11:38] VITALS: BP 104/62; PULSE 82; RESP 20; TEMP 98.5
== END 2023-05-04 12:40 | disposition home or self-care (01) ==
LOC: JER 12:36 → JERBED 16:19 → J8W 17:57
PROVIDERS: ADMIT Internal Medicine; ATTEND Nurse Practitioner Acute Care
PROC: 3E033NZ Introduction of Analgesics, Hypnotics, Sedatives into Peripheral Vein, Percutaneous Approach (ICD-10-PCS; principal; 2023-05-01)
PROC: 3E023GC Introduction of Other Therapeutic Substance into Muscle, Percutaneous Approach (ICD-10-PCS; 2023-05-01)
DX: K70.31 Alcoholic cirrhosis of liver with ascites (principal); F10.99 Alcohol use, unspecified with unspecified alcohol-induced disorder; G20 Parkinson's disease; I10 Essential (primary) hypertension; G25.81 Restless legs syndrome; F41.8 Other specified anxiety disorders; F12.10 Cannabis abuse, uncomplicated; Z29.8 Encounter for other specified prophylactic measures; F17.210 Nicotine dependence, cigarettes, uncomplicated
CPT/HCPCS: 0241U-QW; 36415; 70450-TC; 71045-TC-FY; 76942-TC; 80053; 81003; 83735; 84484; 85025; 85610; 85730; 87086; 93005; 93010; 96372; 96374; 96376; 99285-25; G0378

== ENCOUNTER 2023-07-22 17:12 | Inpatient (IN) | payer OTHER ==
[2023-07-22 17:23] VITALS: BMI 25.0
[2023-07-22 19:09] LABS: BASO % 0.8 % (0-2.0); EOS % 2.1 % (0-4.5); HEMATOCRIT 36.2 % (35.4-49); HEMOGLOBIN 12.2 GM/dL (11.7-16.9); LYMPH % 21.9 % (8-40); MCH 32.6 pg (25.7-33.7); MCHC 33.7 g/dl (32.0-35.9); MEAN CELL VOLUME 96.8 fl (80-96); MONO % 8.1 % (3.8-10.2); NEUT % 67.1 % (42.8-82.8); PLATELET COUNT 127 10^3/uL (134-434); RBC 3.74 M/mm3 (4.00-5.60); RDW 15.1 % (11.9-15.9); WHITE BLOOD COUNT 8.5 K/mm3 (4.0-10.0)
[2023-07-22 19:16] LABS: INR 1.26 (0.83-1.09); PROTHROMBIN TIME (PATIENT) 14.6 SEC (9.7-13.0)
[2023-07-22 19:40] LABS: POTASSIUM 4.2 mmol/L (3.5-5.1)
[2023-07-22 19:42] LABS: ALBUMIN 3.1 g/dl (3.4-5.0); BLOOD UREA NITROGEN 9.6 mg/dL (7-18); CALCIUM 8.6 mg/dL (8.5-10.1)
[2023-07-22 19:46] LABS: CREATININE 0.7 mg/dL (0.55-1.3)
[2023-07-22 19:47] LABS: BILIRUBIN,TOTAL 1.6 mg/dL (0.2-1); TOT PROT 6.6 g/dl (6.4-8.2)
[2023-07-23 05:35] VITALS: RESP 20
[2023-07-23] MEDS ORDERED: LACTULOSE 20 GM/30 ML UDC (FOR ORAL USE ONLY) ONE ×2 (06:08→06:09)
[2023-07-23] MEDS: LACTULOSE 20 GM/30 ML UDC (FOR ORAL USE ONLY) PO SCH ×2 (06:35→14:26)
[2023-07-23 07:48] LABS: HEMATOCRIT 34.7 % (35.4-49); HEMOGLOBIN 11.4 GM/dL (11.7-16.9); MCH 32.3 pg (25.7-33.7); MCHC 32.8 g/dl (32.0-35.9); MEAN CELL VOLUME 98.5 fl (80-96); MEAN PLT VOLUME 9.3 fl (7.5-11.1); PLATELET COUNT 117 10^3/uL (134-434); RBC 3.52 M/mm3 (4.00-5.60); RDW 15.3 % (11.9-15.9); WHITE BLOOD COUNT 7.8 K/mm3 (4.0-10.0)
[2023-07-23 08:07] LABS: POTASSIUM 3.9 mmol/L (3.5-5.1)
[2023-07-23 08:13] LABS: ALBUMIN 2.6 g/dl (3.4-5.0); BLOOD UREA NITROGEN 9.6 mg/dL (7-18); CALCIUM 8.6 mg/dL (8.5-10.1); MAGNESIUM 1.7 mg/dL (1.8-2.4)
[2023-07-23 08:15] LABS: CREATININE 0.7 mg/dL (0.55-1.3); PHOSPHOROUS 4.6 mg/dL (2.5-4.9)
[2023-07-23 08:16] LABS: TOT PROT 5.8 g/dl (6.4-8.2)
[2023-07-23] MEDS ORDERED: FUROSEMIDE 40 MG TABLET (FP) PO SCH (10:00)
[2023-07-23] MEDS ORDERED: SPIRONOLACTONE 25 MG TABLET PO SCH (10:00)
[2023-07-23] MEDS ORDERED: ENOXAPARIN NA (PORCINE) 40 MG/0.4 ML DISP.SYRIN SQ SCH (10:00)
[2023-07-23 10:48] LABS: URINE AMPHETAMINES NEGATIVE (NEGATIVE)
[2023-07-23 10:49] LABS: COCAINE, UR NEGATIVE (NEGATIVE); PHENCYCLIDINE,URINE NEGATIVE (NEGATIVE); URINE BARBITURATES NEGATIVE (NEGATIVE); URINE BENZODIAZEPINES NEGATIVE (NEGATIVE)
[2023-07-23 10:51] LABS: METHADONE, UR NEGATIVE (NEGATIVE)
[2023-07-23] MEDS ORDERED: MAGNESIUM SULF 50% (8.12 MEQ/2 ML-1 GM VIAL) IVPB ONE (11:15)
[2023-07-23 11:16] LABS: OPIATES, URI POSITIVE (NEGATIVE)
[2023-07-23] MEDS ORDERED: ALBUMIN HUMAN 25% 12.5 GM/50 ML VIAL IV SCH (12:15)
[2023-07-23] MEDS: ALBUMIN HUMAN 25% 12.5 GM/50 ML VIAL IV SCH ×2 (12:34→12:35)
[2023-07-23] MEDS ORDERED: MAGNESIUM 1GM/D5W - 1 GM/100 ML IVPB IVPB ONE (12:55)
[2023-07-23 13:07] VITALS: BP 118/84; PULSE 72; TEMP 98.7
[2023-07-23 15:20] LABS: BF WBC & OTHER NUCLEATED CELLS 228 /mm3
[2023-07-23 15:37] LABS: BODY FLUID MACROPHAGES 21 %; BODY FLUID MESOTHELIAL 11 %; BODY FLUID MONOCYTE 59 %
[2023-07-23] MEDS ORDERED: rOPINIRole HCL 1 MG TABLET (FP) PO SCH (22:00)
[2023-07-25 14:09] LABS: BODY FLUID ALBUMIN 1.5 g/dL (Not Estab.)
== END 2023-07-23 15:20 | disposition left against medical advice (07) | DRG 433 ==
LOC: JER 17:12 → JERBED 18:27 → OBSVTOIN 18:27
PROVIDERS: ADMIT Internal Medicine
PROC: 0W9G3ZZ Drainage of Peritoneal Cavity, Percutaneous Approach (ICD-10-PCS; principal; 2023-07-22)
DX: K70.31 Alcoholic cirrhosis of liver with ascites (principal); F10.230 Alcohol dependence with withdrawal, uncomplicated; I10 Essential (primary) hypertension; G25.81 Restless legs syndrome; G47.30 Sleep apnea, unspecified; I27.20 Pulmonary hypertension, unspecified; K42.9 Umbilical hernia without obstruction or gangrene; F41.8 Other specified anxiety disorders; K70.10 Alcoholic hepatitis without ascites; F19.94 Other psychoactive substance use, unspecified with psychoactive substance-induced mood disorder
CPT/HCPCS: 36415; 74177-TC; 76942-TC; 80053; 80307; 82042; 82150; 82465; 82945; 83605; 83615; 83735; 83986; 84100; 84157; 84478; 85025; 85027; 85610; 85730; 86850; 86900; 86901; 87070; 87075; 87102; 87116; 87205; 87206; 87210; 88108; 88305-TC; 93005; 93010; 99285-25; P9047